=== PATIENT | male | born 1935 | race Caucasian/White ===

== ENCOUNTER 2016-11-02 08:51 | Day surgery (SDC) | payer MEDICARE, BC ==
[~2016-11-02 08:51] MED LIST: Lactated Ringers 1,000 ML IV SCH
[2016-11-02] MEDS ORDERED: Propofol 200 MG/20 ML SDV ONE (09:43)
[2016-11-02] MEDS ORDERED: fentaNYL 100 MCG/2 ML SDV ONE (09:43)
[2016-11-02 14:24] VITALS: BP 144/107
--- NOTE | 2016-11-02 18:55 | OR ---
DATE OF SURGERY: 11/02/2016. REFERRING PROVIDER: Benedict Montiel M.D. PRE-OPERATIVE DIAGNOSES: Positive fit stool card. The patient's last colonoscopy was about 10 years ago and was normal per patient's report. No previous history of colon polyps nor any family history of colon cancer or colon polyps. POST-OPERATIVE DIAGNOSES: 1. Mild internal hemorrhoids. 2. Minimal diverticulosis of the transverse colon. PROCEDURE: Colonoscopy. ANESTHESIA: Monitored anesthesia care. BOWEL PREP: Good. DESCRIPTION OF PROCEDURE: Jair is a 81-year-old male, who was brought to the endoscopy suite after discussing risks and benefits of the procedure. Informed consent was obtained for conscious sedation and colonoscopy with or without biopsy and/or polypectomy. We also discussed possibility of missed lesions. Pre-procedure exam was unremarkable. IV, oxygen, and monitors were placed. The patient was placed in the left lateral decubitus position. Sedation was administered and a digital rectal exam was performed which was unremarkable. Colonoscope was passed into the rectum and slowly advanced all the way to the cecum. Cecum was viewed and photographed. The colonoscope was slowly withdrawn and the mucosa was closed observed in a direct circumferential manner. The ascending colon was unremarkable. The transverse colon was remarkable for some minimal diverticulosis. The descending colon was unremarkable. The sigmoid colon was unremarkable. Retroflexion was performed and rectal mucosa was remarkable for some mild internal hemorrhoids, not acutely inflamed. Scope was removed. The patient tolerated the procedure well. The patient was monitored until that baseline status. Discharge instructions were reviewed and the patient was discharged in good condition. COMPLICATIONS: None. TOTAL TIME: 13 minutes. ESTIMATED BLOOD LOSS: None. RECOMMENDATIONS/FOLLOW-UP: The patient can be done with colon cancer screening. I would like to kindly thank Dr. Montiel for this referral. DMB: 11/02/2016 12:40:53 MODL: 11/02/2016 18:51:30 /[id number]
== END 2016-11-02 11:40 | disposition home or self-care (01) ==
LOC: VM.SDS 08:51
PROVIDERS: ATTEND Family Medicine
DX: K57.30 Diverticulosis of large intestine without perforation or abscess without bleeding (principal); K64.8 Other hemorrhoids; I10 Essential (primary) hypertension; E03.9 Hypothyroidism, unspecified; Z98.890 Other specified postprocedural states; Z79.899 Other long term (current) drug therapy
CPT/HCPCS: 00810; 36415; 45378; 85610; J2704; J3010; J7120

== ENCOUNTER 2019-10-20 03:35 | Observation (INO) | payer MEDICARE, BC ==
[2019-10-20] MEDS ORDERED: Sodium Chloride 0.9% 10 ML Syringe FLUSH PRN (03:44)
--- NOTE | 2019-10-20 04:05 | EDM.PDOC ---
ED HPI GENERAL MEDICAL PROBLEM - General Time Seen by Provider: 10/20/19 03:35 Source of Information: Reports: Patient History Limitations: Reports: No Limitations - History of Present Illness INITIAL COMMENTS - FREE TEXT/NARRATIVE: Pt. 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 Pt. states that he thinks the symptoms started at approx. 0300 this AM. He states that he was semi awake at the onset of the symptoms. He states that he went to bed around 11 PM. Pt. denies any recent head trauma. Pt. has a history of atrial fibrillation and states that he is on coumadin 5mg once daily. INR 2 weeks ago was 2.6. He denies any history of cerebrovascular disease has no other underlying neuro deficits. Pt. denies any vision loss or change. No facial numbness. He was noted by nursing to have some mild dysarthria as well. Pt. was diaphoretic on arrival to ER. He was hypertensive with a BP of 195/100. He states that he has a history of mild hypertension but states that it has always been well controlled with atenolol, which he also takes for rate control of his atrial fib. Onset: Today Onset Date: 10/20/19 Onset Time: 03:00 Location: Reports: Upper Extremity, Right Quality: Reports: Other (numbness R upper extremity; "feels like arm is asleep") Associated Symptoms: Reports: Diaphoresis. Denies: Nausea/Vomiting - Related Data Allergies Allergy/AdvReac Type Severity Reaction Status Date / Time No Known Allergies Allergy Verified 10/20/19 03:54 Home Meds: Home Meds Allopurinol [Zyloprim] 100 mg PO DAILY 10/31/16 [History] Levothyroxine [Synthroid] 100 mcg PO DAILY 10/31/16 [History] Warfarin [Coumadin] 5 mg PO DAILY 10/31/16 [History] atenoloL [Atenolol] 50 mg PO DAILY 10/31/16 [History] Warfarin Sodium [Jantoven] 7.5 mg PO ASDIRECTED 10/20/19 [History] Past Medical History HEENT History: Reports: None, Hard of Hearing Cardiovascular History: Reports: Afib, Other (See Below) Other Cardiovascular History: VALVULAR HEART DISEASE Respiratory History: Reports: None Gastrointestinal History: Reports: Other (See Below) Other Gastrointestinal History: + FECAL OCCULT Genitourinary History: Reports: None Musculoskeletal History: Reports: Arthritis, Gout Neurological History: Reports: None Psychiatric History: Reports: None Endocrine/Metabolic History: Reports: Hypothyroidism Hematologic History: Reports: None Immunologic History: Reports: None Oncologic (Cancer) History: Reports: None Dermatologic History: Reports: Other (See Below) Other Dermatologic History: SKIN LESIONS ON SCALP - Past Surgical History HEENT Surgical History: Reports: Cataract Surgery, Tonsillectomy Musculoskeletal Surgical History: Reports: Carpal Tunnel, Knee Replacement ED ROS GENERAL - Review of Systems Review Of Systems: See Below Constitutional: Reports: Weakness (R hand), Diaphoresis. Denies: Fever, Chills , Malaise HEENT: Reports: No Symptoms Respiratory: Reports: No Symptoms Cardiovascular: Reports: No Symptoms Endocrine: Reports: No Symptoms GI/Abdominal: Reports: No Symptoms : Reports: No Symptoms Musculoskeletal: Reports: Arm Pain, Hand Pain Skin: Reports: Diaphoresis Neurological: Reports: Paresthesia, Tingling, Trouble Speaking Psychiatric: Reports: No Symptoms Hematologic/Lymphatic: Reports: No Symptoms Immunologic: Reports: No Symptoms ED EXAM, GENERAL - Physical Exam Exam: See Below Exam Limited By: No Limitations General Appearance: Alert, WD/WN, No Apparent Distress Eye Exam: Bilateral Eye: EOMI, Normal Fundi, Normal Inspection, PERRL Throat/Mouth: Normal Inspection, Normal Lips, Normal Teeth, Normal Gums, Normal Oropharynx, Normal Voice, No Airway Compromise Head: Atraumatic, Normocephalic Neck: Normal Inspection, Supple, Non-Tender, Full Range of Motion Respiratory/Chest: No Respiratory Distress, Lungs Clear, Normal Breath Sounds, No Accessory Muscle Use, Chest Non-Tender Cardiovascular: Normal Peripheral Pulses, No Edema, No Gallop, No JVD, No Murmur , No Rub, Irregularly Irregular Peripheral Pulses: 4+: Radial (L), Radial (R), Dorsalis Pedis (L), Dorsalis Pedis (R) GI/Abdominal: Normal Bowel Sounds, Soft, Non-Tender, No Organomegaly, No Distention, No Mass (Male) Exam: Deferred Rectal (Males) Exam: Deferred Back Exam: Normal Inspection, Full Range of Motion Extremities: Normal Inspection, No Pedal Edema, Other (decreased strength in R upper extremity) Neurological: Alert Psychiatric: Normal Affect, Normal Mood Skin Exam: Warm, Dry, Intact, Normal Color, No Rash Lymphatic: No Adenopathy EKG INTERPRETATION Rhythm: A-Fib (t) Course - Orders/Labs/Meds Orders: Active Orders 24 hr Category Date Time Status EKG Documentation Completion [RC] STAT Care 10/20/19 03:45 Ordered Head wo Cont [CT] Stat Exams 10/20/19 03:45 Ordered COMPREHENSIVE METABOLIC PN,CMP [CHEM] Stat Lab 10/20/19 03:44 Ordered CRP [C-REACTIVE PROTEIN] [CHEM] Stat Lab 10/20/19 03:45 Ordered MAGNESIUM [CHEM] Stat Lab 10/20/19 03:45 Ordered TSH ULTRASENSITIVE [CHEM] Stat Lab 10/20/19 03:45 Ordered Sodium Chloride 0.9% [Saline Flush] Med 10/20/19 03:44 Ordered 10 ml FLUSH ASDIRECTED PRN Peripheral IV Insertion Adult [OM.PC] Routine Oth 10/20/19 03:45 Ordered Medication Orders Sodium Chloride (Saline Flush) 10 ml FLUSH ASDIRECTED PRN PRN Reason: Keep Vein Open Labs: Laboratory Tests 10/20/19 10/20/19 10/20/19 Range/Units 04:08 04:08 04:11 WBC 9.5 (4.0-10.0) x10^3/uL RBC 4.65 (4.5-6.0) x10^6/uL Hgb 16.3 (14.0-18.0) g/dL Hct 49.0 (40.0-52.0) % MCV 105.4 H (78.0-93.0) fL MCH 35.1 H (26.0-32.0) pg MCHC 33.3 (32.0-36.0) g/dL RDW Coeff of Denis 14.1 (10.0-15.0) % Plt Count 139 (130-400) x10^3/uL Neut % (Auto) 37.8 L (50.0-80.0) % Lymph % (Auto) 49.9 (25.0-50.0) % [place] % (Auto) 9.5 (2.0-11.0) % Eos % (Auto) 2.6 (0.0-4.0) % Baso % (Auto) 0.2 (0.2-1.2) % PT 21.8 H (10.0-12.8) SEC INR 1.9 L (2.0-3.5) POC Troponin I 0.01 (0.00-0.08) ng/mL Meds: Medications Generic Name Dose Route Start Last Admin Trade Name Dougq PRN Reason Stop Dose Admin Sodium Chloride 10 ml 10/20/19 03:44 Saline Flush FLUSH ASDIRECTED PRN Keep Vein Open - Radiology Interpretation Free Text/Narrative:: CT brain without contrast was obtained, showing a possible age indeterminate lacunar infarct. - Re-Assessments/Exams Free Text/Narrative Re-Assessment/Exam: Pt. symptoms began to resolve during his stay in ER. The discomfort/paresthesia decreased in severity from 8 down to 1. Desk Director strength improved as well. Stroke code was called on arrival to ER. Contacted [place] stroke neurologist (Melani) and discussed the case at length. He states that the patient does not need to be transferred and advised outpatient MRI/MRA of his brain. He advised bridging with lovenox was below 2 ( it was 1.9) and observation. 10/20/19 04:40 Departure - Departure Time of Disposition: 03:38 Disposition: Refer to Observation Clinical Impression: TIA (transient ischemic attack), Subtherapeutic anticoagulation, Hypertensive crisis - Discharge Information Sepsis Event Note - Focused Exam Date Exam was Performed: 10/20/19 Time Exam was Performed: 04:35 - Problem List Review Problem List Initiated/Reviewed/Updated: Yes - My Orders Last 24 Hours: My Active Orders 10/20/19 03:44 COMPREHENSIVE METABOLIC PN,CMP [CHEM] Stat Sodium Chloride 0.9% [Saline Flush] 10 ml FLUSH ASDIRECTED PRN 10/20/19 03:45 EKG Documentation Completion [RC] STAT Head wo Cont [CT] Stat CRP [C-REACTIVE PROTEIN] [CHEM] Stat MAGNESIUM [CHEM] Stat TSH ULTRASENSITIVE [CHEM] Stat Peripheral IV Insertion Adult [OM.PC] Routine - Assessment/Plan Last 24 Hours: My Active Orders 10/20/19 03:44 COMPREHENSIVE METABOLIC PN,CMP [CHEM] Stat Sodium Chloride 0.9% [Saline Flush] 10 ml FLUSH ASDIRECTED PRN 10/20/19 03:45 EKG Documentation Completion [RC] STAT Head wo Cont [CT] Stat CRP [C-REACTIVE PROTEIN] [CHEM] Stat MAGNESIUM [CHEM] Stat TSH ULTRASENSITIVE [CHEM] Stat Peripheral IV Insertion Adult [OM.PC] Routine Plan: Pt. will be admitted observation. Neuro checks every hour. Vitals every 4. He was given lovenox 80mg SQ as his INR was subtheraputic. Will check INR and trend troponin in AM. He is a code 2, DNR/DNI. Pt. did pass his swallow study. Anticipate discharge tomorrow is symptoms are still resolving.
[2019-10-20 04:44] LABS: ANION GAP 20.1 mmol/L (10-20)
[2019-10-20] MEDS: Enoxaparin 80 MG/0.8 ML Syringe SUBCUT ONE ×2 (04:48→15:55)
--- NOTE | 2019-10-20 08:39 | CT ---
[id number] CT/CT Head WO IV EXAM: CT Head WO IV CLINICAL DATA: RIGHT SIDED ARM WEAKNESS, STROKE CODE COMPARISON STUDY: None FINDINGS: No intracranial hemorrhage, extra-axial fluid collection, mass, or acute ischemia. Generalized parenchymal atrophy with scattered areas of nonspecific white matter disease, commonly seen as sequela of chronic microvascular ischemia. Soft tissues are unremarkable. Paranasal sinuses and mastoid air cells are clear. IMPRESSION: No acute intracranial findings. Samir Oneill DO 10/20/19 0838 Thank you for allowing us to participate in the care of your patient.
[2019-10-20] MEDS: Allopurinol 100 MG Tab PO SCH (09:10)
[2019-10-20] MEDS: Levothyroxine 100 MCG Tab PO SCH (09:10)
[2019-10-20] MEDS: Atenolol 50 MG Tab PO SCH (09:10)
[2019-10-20] MEDS: Lisinopril 5 MG Tab PO ONE (09:56)
[2019-10-20] MEDS: Warfarin 2.5 MG Tab PO ONE (09:56)
[2019-10-20] MEDS: Acetaminophen 500 MG Tab PO PRN (12:00)
[2019-10-20 15:17] VITALS: BP 139/78; PULSE 65
--- NOTE | 2019-10-20 16:30 | PCM.DCSUM1 ---
Discharge Summary - Hospital Course Free Text/Narrative:: Pt. did well overnight. Denies any continued weakness/discomfort or paresthesia in the R upper extremity. Speech has been fluent. Pt. has been intermittently hypertensive throughout admission. He was started on Lisinopril 5mg once daily in addition to his atenolol. BP at time of discharge was excellent at 139/78. Per discussion last night with Dr. Polo, patient was observed overnight. He was bridged with lovenox as his INR was subtheraputic at 1.9. He was given his first dose on admission (lovenox 80mg) and was also given a dose prior to discharge. INR this AM was actually lower at 1.8. Pt. is adamant that he be discharged today as he is symptom free. Diagnosis: Stroke: Yes Modified Keyes Scale: No Symptoms at All Modified Kalie Scale Score: 0 - Discharge Data Discharge Date: 10/20/19 Discharge Disposition: Home, Self-Care 01 Condition: Good - Referral to Home Health Primary Care Physician: Benedict Montiel MD - Discharge Diagnosis/Problem(s) (1) Hypertensive crisis SNOMED Code(s): 037407142 ICD Code: I16.9 - HYPERTENSIVE CRISIS, UNSPECIFIED Status: Acute Current Visit: Yes (2) Subtherapeutic anticoagulation SNOMED Code(s): 033183512 ICD Code: Z51.81 - ENCOUNTER FOR THERAPEUTIC DRUG LEVEL MONITORING; Z79.01 - CARE HOME (CURRENT) USE OF ANTICOAGULANTS Status: Acute Current Visit: Yes (3) TIA (transient ischemic attack) SNOMED Code(s): 710144496 ICD Code: G45.9 - TRANSIENT CEREBRAL ISCHEMIC ATTACK, UNSPECIFIED Status: Acute Current Visit: Yes - Patient Instructions Diet: Heart Healthy Diet - Discharge Plan Home Medications: Home Meds Allopurinol [Zyloprim] 100 mg PO DAILY 10/31/16 [History] Levothyroxine [Synthroid] 100 mcg PO DAILY 10/31/16 [History] Warfarin [Coumadin] 5 mg PO SUTUTHSA@199910/31/16 [History] atenoloL [Atenolol] 50 mg PO DAILY 10/31/16 [History] Warfarin Sodium [Jantoven] 7.5 mg PO MOWEFR@199910/20/19 [History] Forms: ED Department Discharge Referrals: PCP,Unobtain [Ordering Only Provider] - - Discharge Summary/Plan Comment DC Time >30 min.: Yes Discharge Summary/Plan Comment: Pt. will be discharged today. Discussed findings with pharmacy regarding continuing lovenox at home. At this point, since his INR is only mildly subtheraputic and he has had 2 doses of lovenox today, we will hold off on starting lovenox until his INR is checked tomorrow. Pt. was started on Lisinopril 5mg once daily in addition to his atenolol. He was advised to return to ER if his symptoms redevelop, if he has issues with speech/ambulation, or other worrisome signs/symptoms. All questions were answered. - General Info Date of Service: 10/20/19 Functional Status: Reports: Pain Controlled - Review of Systems General: Reports: No Symptoms HEENT: Reports: No Symptoms Pulmonary: Reports: No Symptoms Cardiovascular: Reports: No Symptoms Gastrointestinal: Reports: No Symptoms Genitourinary: Reports: No Symptoms Musculoskeletal: Reports: No Symptoms Skin: Reports: No Symptoms Neurological: Reports: No Symptoms Psychiatric: Reports: No Symptoms - Patient Data Vitals - Most Recent: Last Vital Signs Temp 36.6 C 10/20/19 14:00 Pulse 65 10/20/19 14:00 Resp 18 10/20/19 14:00 BP 139/78 10/20/19 14:00 Pulse Ox 94 L 10/20/19 14:00 Weight - Most Recent: 90.718 kg I&O - Last 24 hours: Intake & Output 10/20/19 10/20/19 10/20/19 06:59 14:59 22:59 Intake Total 120 Balance 120 Lab Results - Last 24 hrs: Laboratory Results - last 24 hr 10/20/19 10/20/19 10/20/19 Range/Units 03:44 04:08 04:08 WBC (4.0-10.0) x10^3/uL RBC (4.5-6.0) x10^6/uL Hgb (14.0-18.0) g/dL Hct (40.0-52.0) % MCV (78.0-93.0) fL MCH (26.0-32.0) pg MCHC (32.0-36.0) g/dL RDW Coeff of Denis (10.0-15.0) % Plt Count (130-400) x10^3/uL Neut % (Auto) (50.0-80.0) % Lymph % (Auto) (25.0-50.0) % [place] % (Auto) (2.0-11.0) % Eos % (Auto) (0.0-4.0) % Baso % (Auto) (0.2-1.2) % PT 21.8 H (10.0-12.8) SEC INR 1.9 L (2.0-3.5) Sodium 146 H (136-145) mmol/L Potassium 4.1 (3.5-5.1) mmol/L Chloride 104 (98-107) mmol/L Carbon Dioxide 26 (21-32) mmol/L Anion Gap 20.1 H (10-20) mmol/L BUN 27 H (7-18) mg/dL Creatinine 1.3 (0.70-1.30) mg/dL Est Cr Clr Drug Dosing 43.81 mL/min Estimated GFR (MDRD) 53 Glucose 140 H (74-106) mg/dL POC Glucose 116 H (74-106) mg/dL Calcium 8.9 (8.5-10.1) mg/dL Corrected Calcium 9.22 (8.5-10.1) mg/dL Magnesium 2.1 (1.8-2.4) mg/dL Total Bilirubin 0.5 (0.2-1.0) mg/dL AST 24 (15-37) U/L ALT 30 (16-63) U/L Alkaline Phosphatase 64 (46-116) U/L POC Troponin I (0.00-0.08) ng/mL C-Reactive Protein 1.3 H (<=0.9) mg/dL Total Protein 7.3 (6.4-8.2) g/dL Albumin 3.6 (3.4-5.0) g/dL Globulin 3.7 Albumin/Globulin Ratio 0.97 TSH, Ultra Sensitive 10.123 H (0.358-3.74) uIU/mL 10/20/19 10/20/19 10/20/19 Range/Units 04:08 04:11 09:45 WBC 9.5 (4.0-10.0) x10^3/uL RBC 4.65 (4.5-6.0) x10^6/uL Hgb 16.3 (14.0-18.0) g/dL Hct 49.0 (40.0-52.0) % MCV 105.4 H (78.0-93.0) fL MCH 35.1 H (26.0-32.0) pg MCHC 33.3 (32.0-36.0) g/dL RDW Coeff of Denis 14.1 (10.0-15.0) % Plt Count 139 (130-400) x10^3/uL Neut % (Auto) 37.8 L (50.0-80.0) % Lymph % (Auto) 49.9 (25.0-50.0) % [place] % (Auto) 9.5 (2.0-11.0) % Eos % (Auto) 2.6 (0.0-4.0) % Baso % (Auto) 0.2 (0.2-1.2) % PT 20.7 H (10.0-12.8) SEC INR 1.8 L (2.0-3.5) Sodium (136-145) mmol/L Potassium (3.5-5.1) mmol/L Chloride (98-107) mmol/L Carbon Dioxide (21-32) mmol/L Anion Gap (10-20) mmol/L BUN (7-18) mg/dL Creatinine (0.70-1.30) mg/dL Est Cr Clr Drug Dosing mL/min Estimated GFR (MDRD) Glucose (74-106) mg/dL POC Glucose (74-106) mg/dL Calcium (8.5-10.1) mg/dL Corrected Calcium (8.5-10.1) mg/dL Magnesium (1.8-2.4) mg/dL Total Bilirubin (0.2-1.0) mg/dL AST (15-37) U/L ALT (16-63) U/L Alkaline Phosphatase (46-116) U/L POC Troponin I 0.01 (0.00-0.08) ng/mL C-Reactive Protein (<=0.9) mg/dL Total Protein (6.4-8.2) g/dL Albumin (3.4-5.0) g/dL Globulin Albumin/Globulin Ratio TSH, Ultra Sensitive (0.358-3.74) uIU/mL Med Orders - Current: Current Medications Acetaminophen (Tylenol Extra Strength) 1,000 mg PO Q6H PRN PRN Reason: Pain Last Admin: 10/20/19 12:00 Dose: 1,000 mg Allopurinol (Zyloprim) 100 mg PO DAILY [facility] Last Admin: 10/20/19 09:10 Dose: 100 mg Atenolol (Tenormin) 50 mg PO DAILY [facility] Last Admin: 10/20/19 09:10 Dose: 50 mg Levothyroxine Sodium (Synthroid) 100 mcg PO DAILY [facility] Last Admin: 10/20/19 09:10 Dose: 100 mcg Sodium Chloride (Saline Flush) 10 ml FLUSH ASDIRECTED PRN PRN Reason: Keep Vein Open Warfarin Sodium (Coumadin) 5 mg PO MoWeFr@1999 [facility] Warfarin Sodium (Coumadin) 7.5 mg PO SuTuThSa@1999 [facility] Discontinued Medications Enoxaparin Sodium (Lovenox) 80 mg SUBCUT ONETIME ONE Stop: 10/20/19 04:44 Last Admin: 10/20/19 04:48 Dose: 80 mg Enoxaparin Sodium (Lovenox) 80 mg SUBCUT ONETIME ONE Stop: 10/20/19 16:01 Last Admin: 10/20/19 15:55 Dose: 80 mg Lisinopril (Prinivil) 5 mg PO ONETIME ONE Stop: 10/20/19 09:43 Last Admin: 10/20/19 09:56 Dose: 5 mg Warfarin Sodium (Coumadin) 7.5 mg PO ONETIME ONE Stop: 10/20/19 09:46 Last Admin: 10/20/19 09:56 Dose: 7.5 mg - Exam General: Reports: Alert, Oriented HEENT: Reports: Pupils Equal, Pupils Reactive, EOMI, Mucous Membr. Moist/Doyle Neck: Reports: Supple Lungs: Reports: Clear to Auscultation, Normal Respiratory Effort Cardiovascular: Reports: Regular Rate, Regular Rhythm GI/Abdominal Exam: Soft, Non-Tender, No Distention, No Mass (Male) Exam: Deferred Rectal (Males) Exam: Deferred Back Exam: Reports: Normal Inspection, Full Range of Motion Extremities: Normal Inspection, Normal Range of Motion, Non-Tender, No Pedal Edema, Normal Capillary Refill Skin: Reports: Warm, Dry, Intact Neurological: Reports: No New Focal Deficit Psy/Mental Status: Reports: Alert, Normal Affect, Normal Mood
[2019-10-20] MEDS ORDERED: Warfarin 5 MG Tab PO SCH (20:00)
[2019-10-21] MEDS ORDERED: Warfarin 2.5 MG Tab PO SCH (20:00)
== END 2019-10-20 16:00 | disposition home or self-care (01) ==
LOC: VM.ED 03:35 → VM.MS 04:50
PROVIDERS: ADMIT Physician Assistant; ATTEND Family Medicine
DX: G45.9 Transient cerebral ischemic attack, unspecified (principal); I16.9 Hypertensive crisis, unspecified; E03.9 Hypothyroidism, unspecified; I48.91 Unspecified atrial fibrillation; Z51.81 Encounter for therapeutic drug level monitoring; Z79.890 Hormone replacement therapy; Z79.01 Long term (current) use of anticoagulants; Z79.899 Other long term (current) drug therapy
CPT/HCPCS: 36415; 70450; 80053; 82962; 83735; 84443; 84484; 85025; 85610; 86140; 93005; 96372; 99236; 99285-25; A9270-GY; J1650

== ENCOUNTER 2020-08-04 20:19 | Emergency (ER) | payer MEDICARE, BC ==
--- NOTE | 2020-08-04 20:38 | EDM.PDOC ---
ED HPI GENERAL MEDICAL PROBLEM - General Stated Complaint: NEEDS CATHERER OUT Time Seen by Provider: 08/04/20 20:20 Source of Information: Reports: Patient History Limitations: Reports: No Limitations - History of Present Illness INITIAL COMMENTS - FREE TEXT/NARRATIVE: This patient comes emergency department today for urinary catheter removal. This patient was seen by myself early Sunday morning of this week for severe constipation and urinary retention. Cruz catheter was placed and left in and he was supposed to return yesterday but he was unable to to get his Cruz catheter removed in the clinic. He has actually had multiple bowel movements and is actually having a little bit of diarrhea. No nausea no vomiting. No rectal bleeding. No abdominal pain. No fever no chills. He would like his Cruz catheter removed. He did attempt to remove it at home by just pulling on the end of the catheter as he was unaware that there was a balloon in there. Therefore he came to the ER to get it removed. No Covid exposure no Covid symptoms. No pain in his abdomen. He did have a small amount of blood initially when he tried to remove the catheter but that has resolved. He was on anticoagulation therapy previously but he is holding it at this time due to his recent diagnosis of esophageal cancer and multiple testing. - Related Data Allergies Allergy/AdvReac Type Severity Reaction Status Date / Time No Known Allergies Allergy Verified 08/02/20 06:44 Home Meds: Home Meds Allopurinol [Zyloprim] 100 mg PO DAILY 10/31/16 [History] Levothyroxine [Synthroid] 100 mcg PO DAILY 10/31/16 [History] Warfarin [Coumadin] 5 mg PO SUTUTHSA@199910/31/16 [History] atenoloL [Atenolol] 50 mg PO DAILY 10/31/16 [History] Warfarin Sodium [Jantoven] 7.5 mg PO MOWEFR@199910/20/19 [History] Omeprazole 20 mg PO DAILY 07/15/20 [History] Past Medical History HEENT History: Reports: None, Hard of Hearing Cardiovascular History: Reports: Afib, Other (See Below) Other Cardiovascular History: VALVULAR HEART DISEASE Respiratory History: Reports: None Gastrointestinal History: Reports: Other (See Below) Other Gastrointestinal History: + FECAL OCCULT Genitourinary History: Reports: None Musculoskeletal History: Reports: Arthritis, Gout Neurological History: Reports: None Psychiatric History: Reports: None Endocrine/Metabolic History: Reports: Hypothyroidism Hematologic History: Reports: None Immunologic History: Reports: None Oncologic (Cancer) History: Reports: None Dermatologic History: Reports: Other (See Below) Other Dermatologic History: SKIN LESIONS ON SCALP - Past Surgical History Head Surgeries/Procedures: Reports: None HEENT Surgical History: Reports: Cataract Surgery, Tonsillectomy Cardiovascular Surgical History: Reports: None GI Surgical History: Reports: Colonoscopy Endocrine Surgical History: Reports: None Musculoskeletal Surgical History: Reports: Carpal Tunnel, Knee Replacement Oncologic Surgical History: Reports: None Social & Family History - Caffeine Use Caffeine Use: Reports: Coffee, Soda, Tea ED ROS GENERAL - Review of Systems Review Of Systems: Comprehensive ROS is negative, except as noted in HPI. ED EXAM, RENAL/ - Physical Exam Exam: See Below Exam Limited By: No Limitations General Appearance: Alert, WD/WN, No Apparent Distress Respiratory/Chest: No Respiratory Distress Cardiovascular: Normal Peripheral Pulses GI/Abdominal: Normal Bowel Sounds, Soft, Non-Tender (Male) Exam: Deferred, Other (Urinary catheter in place. Small amount of urine in the bag with a very mild redness color. No kenroy blood.) Rectal (Males) Exam: Deferred Back Exam: Normal Inspection, Full Range of Motion Extremities: Normal Inspection, Normal Range of Motion, No Pedal Edema, Normal Capillary Refill Neurological: Alert, Oriented, No Motor/Sensory Deficits Psychiatric: Normal Affect, Normal Mood Skin Exam: Warm, Dry, Intact, Normal Color, No Rash Course - Re-Assessments/Exams Free Text/Narrative Re-Assessment/Exam: 08/04/20 20:39 Cruz catheter was removed without difficulty. There is no bleeding. Tolerated the procedure well. I will have him hold his MiraLAX as he has diarrhea at this time. He can restart it if he has any concerns for constipation again. Recheck if any new problems. He is understanding this questions are answered. Departure - Departure Time of Disposition: 20:33 Disposition: Home, Self-Care 01 Clinical Impression: Encounter for Cruz catheter removal - Discharge Information Referrals: Delmi Houston DO [Primary Care Provider] - Additional Instructions: You can discontinue the miralax. Use if you see any concerns of hard stool or constipation returning as previously. Return to the ED if new or worsening symptoms. Follow up in the clinic if any concerns.
== END 2020-08-04 20:45 | disposition home or self-care (01) ==
LOC: VM.ED 20:19
CPT/HCPCS: 99283

== ENCOUNTER 2020-10-07 12:36 | Inpatient (IN) | payer MEDICARE, BC ==
[2020-10-07] MEDS ORDERED: Lactated Ringers 1,000 ML IV ONE (13:47)
[2020-10-07 14:30] LABS: PTT,PARTIAL THROMBOPLSTIN TIME 33.6 SEC (25.6-32.8)
[2020-10-07 14:34] LABS: CHLORIDE,CL 102 mmol/L (98-107); SODIUM,NA 138 mmol/L (136-145)
[2020-10-07 14:42] LABS: ANION GAP 10.4 mmol/L (5-15)
--- NOTE | 2020-10-07 15:13 | EDM.PDOC ---
ED HPI GENERAL MEDICAL PROBLEM - General Chief Complaint: General Stated Complaint: Weakness Time Seen by Provider: 10/07/20 12:40 Source of Information: Reports: Patient History Limitations: Reports: No Limitations - History of Present Illness INITIAL COMMENTS - FREE TEXT/NARRATIVE: Patient comes emergency department today from home with his family with concerns of generalized weakness. This patient is currently under management and not currently receiving any chemotherapy or radiation for esophageal cancer. He has been receiving regular IV infusions every other day in the clinic or in the emergency department due to his inability to eat and drink with his painful esophagus following his treatments for his esophageal cancer. He is getting very difficult for him at home to drink fluids or eat any food. It has been a couple of days since he is eaten any solid food. He does attempt to drink water and protein shakes at home but does not get much of them down. He had does complain of quite a bit of nausea as well. He takes oxycodone intermittently for his pain. No fever no chills. No cough no congestion. No chest pain no shortness of breath or difficulty breathing. No shortness of breath. No abdominal pain does complain of nausea without vomiting. No hematuria dysuria or urinary frequency. No palpitations or syncope. No Covid exposure no Covid symptoms. - Related Data Allergies Allergy/AdvReac Type Severity Reaction Status Date / Time No Known Allergies Allergy Verified 10/07/20 15:28 Home Meds: Home Meds Allopurinol [Zyloprim] 100 mg PO DAILY 10/31/16 [History] Levothyroxine [Synthroid] 100 mcg PO DAILY 10/31/16 [History] Warfarin [Coumadin] 5 mg PO DAILY 10/31/16 [History] atenoloL [Atenolol] 50 mg PO DAILY 10/31/16 [History] Omeprazole 20 mg PO DAILY 07/15/20 [History] Lidocaine 2% [Xylocaine 2% Viscous] 30 ml PO QID PRN 10/07/20 [History] OLANZapine [ZyPREXA] 10 mg PO BEDTIME 10/07/20 [History] Phytonadione [Vitamin K] 200 mcg PO DAILY 10/07/20 [History] Prochlorperazine [Compazine] 10 mg PO QID PRN 10/07/20 [History] atorvaSTATin [Lipitor] 20 mg PO BEDTIME 10/07/20 [History] dexAMETHasone [Dexamethasone] 4 mg PO DAILY 10/07/20 [History] lidocaine HCL [Lidocaine HCl Viscous] 30 ml PO QID PRN 10/07/20 [History] oxyCODONE 5 mg PO Q4H PRN 10/07/20 [History] Past Medical History HEENT History: Reports: None, Hard of Hearing Cardiovascular History: Reports: Afib, Other (See Below) Other Cardiovascular History: VALVULAR HEART DISEASE Respiratory History: Reports: None Gastrointestinal History: Reports: Other (See Below) Other Gastrointestinal History: + FECAL OCCULT Genitourinary History: Reports: None Musculoskeletal History: Reports: Arthritis, Gout Neurological History: Reports: None Psychiatric History: Reports: None Endocrine/Metabolic History: Reports: Hypothyroidism Hematologic History: Reports: None Immunologic History: Reports: None Oncologic (Cancer) History: Reports: None Dermatologic History: Reports: Other (See Below) Other Dermatologic History: SKIN LESIONS ON SCALP - Past Surgical History Head Surgeries/Procedures: Reports: None HEENT Surgical History: Reports: Cataract Surgery, Tonsillectomy Cardiovascular Surgical History: Reports: None GI Surgical History: Reports: Colonoscopy Endocrine Surgical History: Reports: None Musculoskeletal Surgical History: Reports: Carpal Tunnel, Knee Replacement Oncologic Surgical History: Reports: None Social & Family History - Caffeine Use Caffeine Use: Reports: Coffee, Soda, Tea ED ROS GENERAL - Review of Systems Review Of Systems: Comprehensive ROS is negative, except as noted in HPI. ED EXAM, GENERAL - Physical Exam Exam: See Below Free Text/Narrative:: Nontoxic appearing frail gentleman who is alert appropriate and interactive Exam Limited By: No Limitations General Appearance: Alert, WD/WN, Thin Eye Exam: Bilateral Eye: EOMI, PERRL Ears: Normal External Exam Nose: Normal Inspection Throat/Mouth: No: Normal Inspection (Oral mucosa is quite dry without any lesions or ulcers. Lips are dry and cracked as well.) Head: Atraumatic, Normocephalic Neck: Normal Inspection, Supple, Non-Tender, Full Range of Motion Respiratory/Chest: No Respiratory Distress, Lungs Clear, Normal Breath Sounds, No Accessory Muscle Use, Chest Non-Tender Cardiovascular: Normal Peripheral Pulses, Regular Rate, Rhythm Peripheral Pulses: 1+: Radial (L), Radial (R), Posterior Tibial (L), Posterior Tibial (R), Dorsalis Pedis (L), Dorsalis Pedis (R) GI/Abdominal: Normal Bowel Sounds, Soft, Non-Tender (Male) Exam: Deferred Rectal (Males) Exam: Deferred Back Exam: Normal Inspection, Full Range of Motion Extremities: Normal Inspection, Pedal Edema (1+ pedal edema as well as some peripheral edema to his hands and forearms.) Neurological: Alert, Oriented, Normal Cognition, No Motor/Sensory Deficits Course - Vital Signs Last Recorded V/S: Last Vital Signs Temp 97.9 F 10/07/20 18:00 Pulse 96 10/07/20 18:00 Resp 18 10/07/20 12:40 BP 114/71 10/07/20 18:00 Pulse Ox 93 L 10/07/20 18:00 - Orders/Labs/Meds Orders: Active Orders 24 hr Category Date Time Status EKG Documentation Completion [RC] STAT Care 10/07/20 13:25 Active CULTURE BLOOD [BC] Stat Lab 10/07/20 13:55 Received CULTURE BLOOD [BC] Stat Lab 10/07/20 14:10 Received UA RFX BERTHA AND CULT IF INDIC [URIN] Stat Lab 10/07/20 13:25 Ordered Blood Culture x2 Reflex Set [OM.PC] Stat Oth 10/07/20 13:30 Ordered Medication Orders Acetaminophen (Acetaminophen 325 Mg Tab) 650 mg PO Q4H PRN PRN Reason: Pain (Mild 1-3)/fever Al Hydroxide/Mg Hydroxide (Gi Cocktail Oral Solution 30 Ml) 30 ml PO TIDAC JAIDEN Last Admin: 10/07/20 17:05 Dose: Not Given Documented by: EDENILSON Allopurinol (Allopurinol 100 Mg Tab) 100 mg PO DAILY [facility] Atenolol (Atenolol 50 Mg Tab) 50 mg PO DAILY [facility] Atorvastatin Calcium (Atorvastatin 10 Mg Tab) 20 mg PO BEDTIME [facility] Bisacodyl (Bisacodyl 5 Mg Tab) 5 mg PO DAILY PRN PRN Reason: Constipation Last Admin: 10/07/20 17:39 Dose: 5 mg Documented by: EDENILSON Dexamethasone (Dexamethasone 4 Mg Tab) 4 mg PO DAILY [facility] Stop: 10/15/20 08:01 Hydromorphone HCl (Hydromorphone 2 Mg Tab) 2 mg PO Q3H PRN PRN Reason: Pain Promethazine HCl 6.25 mg/ (Sodium Chloride) 100.25 mls @ 400 mls/hr IV Q6H PRN PRN Reason: Nausea/Vomiting Potassium Chloride/Dextrose/Sod Cl (D5 Ns With 20 Meq Kcl) 1,000 mls @ 75 mls/hr IV ASDIRECTED JAIDEN Last Admin: 10/07/20 17:35 Dose: 75 mls/hr Documented by: EDENILSON Levothyroxine Sodium (Levothyroxine 100 Mcg Tab) 100 mcg PO DAILY [facility] Lidocaine HCl (Lidocaine 2% Viscous Solution 100 Ml Bottle) 30 ml PO QID PRN PRN Reason: Pain Magnesium Oxide (Magnesium Oxide 400 Mg Tab) 400 mg PO BID [facility] Last Admin: 10/07/20 17:57 Dose: 400 mg Documented by: EDENILSON Olanzapine (Olanzapine 5 Mg Tab) 10 mg PO BEDTIME JAIDEN Omeprazole (Omeprazole 20 Mg Cap.Cr) 20 mg PO DAILY [facility] Ondansetron HCl (Ondansetron 4 Mg/2 Ml Sdv) 4 mg IVPUSH Q8H PRN PRN Reason: Nausea Last Admin: 10/07/20 17:35 Dose: 4 mg Documented by: EDENILSON Ondansetron HCl (Ondansetron 4 Mg Tab.Dis) 4 mg PO Q4H PRN PRN Reason: Nausea/Vomiting Pharmacy Consult (Pharmacy Consult Order) 1 each .XX ASDIRECTED [facility] Senna/Docusate Sodium (Docusate Sodium/Sennosides 50-8.6 Mg Tab) 1 tab PO BID [facility] Last Admin: 10/07/20 17:40 Dose: 1 tab Documented by: EDENILSON Sodium Chloride (Sodium Chloride 0.9% 10 Ml Syringe) 10 ml FLUSH ASDIRECTED PRN PRN Reason: FLUSH Last Admin: 10/07/20 17:54 Dose: 10 ml Documented by: EDENILSON Labs: Laboratory Tests 10/07/20 10/07/20 10/07/20 Range/Units 13:55 13:55 13:55 WBC 6.7 (4.0-10.0) x10^3/uL RBC 3.84 L (4.5-6.0) x10^6/uL Hgb 13.4 L D (14.0-18.0) g/dL Hct 38.5 L (40.0-52.0) % MCV 100.3 H (78.0-93.0) fL MCH 34.9 H (26.0-32.0) pg MCHC 34.8 (32.0-36.0) g/dL RDW Coeff of Denis 17.0 H (10.0-15.0) % Plt Count 72 L (130-400) x10^3/uL Neut % (Auto) 81.3 H (50.0-80.0) % Lymph % (Auto) 11.9 L (25.0-50.0) % [place] % (Auto) 6.6 (2.0-11.0) % Eos % (Auto) 0.1 (0.0-4.0) % Baso % (Auto) 0.1 L (0.2-1.2) % PT (9.9-12.5) SEC INR (2.0-3.5) APTT (25.6-32.8) SEC Sodium 138 (136-145) mmol/L Potassium 3.4 L (3.5-5.1) mmol/L Chloride 102 (98-107) mmol/L Carbon Dioxide 29 (21-32) mmol/L Anion Gap 10.4 (5-15) mmol/L BUN 21 H (7-18) mg/dL Creatinine 0.9 (0.70-1.30) mg/dL Est Cr Clr Drug Dosing TNP Estimated GFR (MDRD) > 60 Glucose 105 (74-106) mg/dL Lactic Acid 2.3 H* (0.4-2.0) mmol/L Calcium 7.9 L (8.5-10.1) mg/dL Corrected Calcium 9.58 (8.5-10.1) mg/dL Magnesium 1.6 L (1.8-2.4) mg/dL Total Bilirubin 0.9 (0.2-1.0) mg/dL AST 32 (15-37) U/L ALT 22 (16-63) U/L Alkaline Phosphatase 67 (46-116) U/L Troponin I High Sens 22 (<=76) ng/L Total Protein 5.4 L (6.4-8.2) g/dL Albumin 1.9 L (3.4-5.0) g/dL Globulin 3.5 Albumin/Globulin Ratio 0.54 SARS CoV-2 RNA Rapid MARTITA (NEGATIVE) 10/07/20 10/07/20 Range/Units 13:55 14:07 WBC (4.0-10.0) x10^3/uL RBC (4.5-6.0) x10^6/uL Hgb (14.0-18.0) g/dL Hct (40.0-52.0) % MCV (78.0-93.0) fL MCH (26.0-32.0) pg MCHC (32.0-36.0) g/dL RDW Coeff of Denis (10.0-15.0) % Plt Count (130-400) x10^3/uL Neut % (Auto) (50.0-80.0) % Lymph % (Auto) (25.0-50.0) % [place] % (Auto) (2.0-11.0) % Eos % (Auto) (0.0-4.0) % Baso % (Auto) (0.2-1.2) % PT 14.9 H (9.9-12.5) SEC INR 1.3 L (2.0-3.5) APTT 33.6 H (25.6-32.8) SEC Sodium (136-145) mmol/L Potassium (3.5-5.1) mmol/L Chloride (98-107) mmol/L Carbon Dioxide (21-32) mmol/L Anion Gap (5-15) mmol/L BUN (7-18) mg/dL Creatinine (0.70-1.30) mg/dL Est Cr Clr Drug Dosing Estimated GFR (MDRD) Glucose (74-106) mg/dL Lactic Acid (0.4-2.0) mmol/L Calcium (8.5-10.1) mg/dL Corrected Calcium (8.5-10.1) mg/dL Magnesium (1.8-2.4) mg/dL Total Bilirubin (0.2-1.0) mg/dL AST (15-37) U/L ALT (16-63) U/L Alkaline Phosphatase (46-116) U/L Troponin I High Sens (<=76) ng/L Total Protein (6.4-8.2) g/dL Albumin (3.4-5.0) g/dL Globulin Albumin/Globulin Ratio SARS CoV-2 RNA Rapid MARTITA Negative (NEGATIVE) Meds: Medications Generic Name Dose Route Start Last Admin Trade Name Freq PRN Reason Stop Dose Admin Acetaminophen 650 mg 10/07/20 15:45 Acetaminophen 325 Mg Tab PO Q4H PRN Pain (Mild 1-3)/fever Al Hydroxide/Mg Hydroxide 30 ml 10/07/20 17:00 10/07/20 17:05 Gi Cocktail Oral Solution 30 Ml PO Not Given TIDAC [facility] Allopurinol 100 mg 10/08/20 08:00 Allopurinol 100 Mg Tab PO DAILY [facility] Atenolol 50 mg 10/08/20 08:00 Atenolol 50 Mg Tab PO DAILY [facility] Atorvastatin Calcium 20 mg 10/07/20 20:00 Atorvastatin 10 Mg Tab PO BEDTIME [facility] Bisacodyl 5 mg 10/07/20 17:27 10/07/20 17:39 Bisacodyl 5 Mg Tab PO 5 mg DAILY PRN Administration Constipation Dexamethasone 4 mg 10/08/20 08:00 Dexamethasone 4 Mg Tab PO 10/15/20 08:01 DAILY [facility] Hydromorphone HCl 2 mg 10/07/20 17:07 Hydromorphone 2 Mg Tab PO Q3H PRN Pain Promethazine HCl 6.25 mg/ 100.25 mls @ 400 mls/hr 10/07/20 16:05 Sodium Chloride IV Q6H PRN Nausea/Vomiting Potassium Chloride/Dextrose/Sod Cl 1,000 mls @ 75 mls/hr 10/07/20 17:15 10/07/20 17:35 D5 Ns With 20 Meq Kcl IV 75 mls/hr ASDIRECTED [facility] Administration Levothyroxine Sodium 100 mcg 10/08/20 08:00 Levothyroxine 100 Mcg Tab PO DAILY [facility] Lidocaine HCl 30 ml 10/07/20 15:57 Lidocaine 2% Viscous Solution 100 Ml Bottle PO QID PRN Pain Magnesium Oxide 400 mg 10/07/20 17:15 10/07/20 17:57 Magnesium Oxide 400 Mg Tab PO 400 mg BID JAIDEN Administration Olanzapine 10 mg 10/07/20 20:00 Olanzapine 5 Mg Tab PO BEDTIME [facility] Omeprazole 20 mg 10/08/20 08:00 Omeprazole 20 Mg Cap.Cr PO DAILY [facility] Ondansetron HCl 4 mg 10/07/20 17:07 10/07/20 17:35 Ondansetron 4 Mg/2 Ml Sdv IVPUSH 4 mg Q8H PRN Administration Nausea Ondansetron HCl 4 mg 10/07/20 17:08 Ondansetron 4 Mg Tab.Dis PO Q4H PRN Nausea/Vomiting Pharmacy Consult 1 each 10/07/20 16:00 Pharmacy Consult Order .XX ASDIRECTED JAIDEN Senna/Docusate Sodium 1 tab 10/07/20 17:30 10/07/20 17:40 Docusate Sodium/Sennosides 50-8.6 Mg Tab PO 1 tab BID JAIDEN Administration Sodium Chloride 10 ml 10/07/20 17:35 10/07/20 17:54 Sodium Chloride 0.9% 10 Ml Syringe FLUSH 10 ml ASDIRECTED PRN Administration FLUSH Discontinued Medications Generic Name Dose Route Start Last Admin Trade Name Freq PRN Reason Stop Dose Admin Al Hydroxide/Mg Hydroxide 30 ml 10/07/20 17:00 10/07/20 16:33 Gi Cocktail Oral Solution 30 Ml PO 30 ml TIDAC JAIDEN Administration Dexamethasone 4 mg 10/08/20 08:00 Dexamethasone 4 Mg Tab PO 10/12/20 10:00 DAILY [facility] Lactated Ringer's 1,000 mls @ 999 mls/hr 10/07/20 13:47 10/07/20 14:00 Ringers, Lactated IV 10/07/20 14:47 999 mls/hr ONETIME ONE Administration Dextrose/Lactated Ringer's 1,000 mls @ 75 mls/hr 10/07/20 16:15 Dextrose 5%-Lactated Ringers IV ASDIRECTED [facility] Ondansetron HCl 4 mg 10/07/20 15:45 Ondansetron 4 Mg/2 Ml Sdv IV Q6H PRN Nausea/Vomiting Oxycodone HCl 5 mg 10/07/20 15:57 Oxycodone 5 Mg Tab PO Q4H PRN Pain Oxycodone HCl 5 mg 10/07/20 16:42 Oxycodone 5 Mg Tab PO Q4H PRN Pain Phytonadione 200 mcg 10/08/20 08:00 Phytonadione 100 Mcg Tab PO DAILY [facility] Warfarin Sodium 10 mg 10/07/20 16:00 10/07/20 16:33 Warfarin 5 Mg Tab PO 10/07/20 16:01 10 mg ONETIME ONE Administration - Re-Assessments/Exams Free Text/Narrative Re-Assessment/Exam: 10/07/20 18:58 IV was established labs were drawn. Blood cultures x2 pending. 1 L LR wide open. CBC with white blood cell count of 6.7, hemoglobin 13.4 platelet 72. INR 1.3 with a PT of 14.9. CMP shows a sodium 138, potassium 3.4 BUN 21, creatinine 0.9 calcium is low at 7.9 his total protein is quite low at 5.4 as well as his albumin at 1.9. Magnesium 1.6. Lactic acid 2.3. Urinalysis pending upon admission. This patient is showing clear signs of outpatient failure treatment. His malnutrition is gotten out of control at home. He is barely able to eat anything. They have had discussions about a feeding tube with his oncologist although there is nothing on the table at this time. He really does not feel like he can do it at home. I talked with his primary care provider Dr. Diandra Houston. We will admit him under observation under the care of Dr. Diandra Houston. He was given multiple liquid cell protein drinks in the emergency department and suggested to drink them I think this is a big aspect of his malnutrition and his weakness. We will continue IV hydration on the floor. He is comfortable with this plan and his questions are answered. Departure - Departure Time of Disposition: 15:12 Disposition: Refer to Observation Clinical Impression: Generalized weakness Esophageal cancer Qualifiers: Malignant neoplasm of esophagus location: unspecified location Qualified Code(s): C15.9 - Malignant neoplasm of esophagus, unspecified - Discharge Information *PRESCRIPTION DRUG MONITORING PROGRAM REVIEWED*: Not Applicable *COPY OF PRESCRIPTION DRUG MONITORING REPORT IN PATIENT KATIE: Not Applicable Sepsis Event Note (ED) - Focused Exam Vital Signs: Vital Signs Temp Pulse Resp BP Pulse Ox 10/07/20 12:40 97.7 F 84 18 117/79 97 - My Orders Last 24 Hours: My Active Orders 10/07/20 13:25 EKG Documentation Completion [RC] STAT UA RFX BERTHA AND CULT IF INDIC [URIN] Stat 10/07/20 13:30 Blood Culture x2 Reflex Set [OM.PC] Stat 10/07/20 13:55 CULTURE BLOOD [BC] Stat 10/07/20 14:10 CULTURE BLOOD [BC] Stat - Assessment/Plan Last 24 Hours: My Active Orders 10/07/20 13:25 EKG Documentation Completion [RC] STAT UA RFX BERTHA AND CULT IF INDIC [URIN] Stat 10/07/20 13:30 Blood Culture x2 Reflex Set [OM.PC] Stat 10/07/20 13:55 CULTURE BLOOD [BC] Stat 10/07/20 14:10 CULTURE BLOOD [BC] Stat
--- NOTE | 2020-10-07 15:40 | PCM.EKG ---
#1 Interpretation EKG Date: 10/07/20 Time: 14:13 Rhythm: A-Fib Rate (Beats/Min): 82 [place]: Normal P-Wave: Present QRS: Normal ST-T: Normal QT: Prolonged Comparison: Change From Previous EKG (Prolonged QT and Lateral T wave inversion.)
[2020-10-07] MEDS ORDERED: Ondansetron 4 MG/2 ML SDV IV PRN (15:45)
[2020-10-07] MEDS ORDERED: Acetaminophen 325 MG Tab PO PRN (15:45)
[2020-10-07] MEDS ORDERED: Lidocaine 2% Viscous Solution 100 ML Bottle PO PRN (15:57)
[2020-10-07] MEDS ORDERED: oxyCODONE 5 MG Tab PO PRN ×2 (15:57→16:42)
[2020-10-07] MEDS ORDERED: Warfarin 5 MG Tab PO ONE (16:00)
[2020-10-07] MEDS ORDERED: Promethazine 6.25 MG in Sodium Chloride 0.9% 100 ML IV PRN (16:05)
[2020-10-07] MEDS ORDERED: Dextrose 5%-Lactated Ringers 1,000 ML IV SCH (16:15)
[2020-10-07] MEDS ORDERED: GI Cocktail Oral Solution 30 ML PO SCH (17:00)
[2020-10-07] MEDS: GI Cocktail Oral Solution 30 ML PO SCH (17:05)
[2020-10-07] MEDS ORDERED: Ondansetron 4 MG Tab.DIS PO PRN (17:08)
[2020-10-07] MEDS ORDERED: Bisacodyl 5 MG Tab PO PRN (17:27)
[2020-10-07] MEDS: Ondansetron 4 MG/2 ML SDV IVPUSH PRN (17:35)
[2020-10-07] MEDS: Dextrose 5%-0.9% NaCl with KCl 1,000 ML IV SCH (17:35)
[2020-10-07] MEDS: Sodium Chloride 0.9% 10 ML Syringe FLUSH PRN (17:54)
[2020-10-07] MEDS: Magnesium Oxide 400 MG Tab PO SCH ×2 (17:57→20:22)
[2020-10-07] MEDS: atorvaSTATin 10 MG Tab PO SCH (20:21)
[2020-10-07] MEDS: HYDROmorphone 2 MG Tab PO PRN (20:21)
[2020-10-07] MEDS: OLANZapine 5 MG Tab PO SCH (20:22)
--- NOTE | 2020-10-07 23:15 | HP ---
CHIEF COMPLAINT: Weakness. HISTORY OF PRESENT ILLNESS: This is an 85-year-old male who has recently completed chemo and radiation treatments for esophageal cancer, who was so weak at home he could hardly get dressed or out of his bedroom. He had similar symptoms yesterday morning and came to the clinic for his regularly scheduled fluids. Upon arrival and getting fluids, I did visit with the patient, but he was feeling much better, so elected to go home rather than for hospital admission. The patient was not having any fever. No shaking chills. No cough. No shortness of breath. He was having some nausea. He gets stomach pain when he takes the oxycodone. His throat pain was getting better on the dexamethasone and using the lidocaine, but he still was not having much of an oral intake. In the ER, patient was found to have normal white count, mildly low potassium and magnesium. He reports also his last bowel movement has not been since Sunday. ALLERGIES: Include none. MEDICATIONS: His medication list was reviewed and included lidocaine viscous 30 mL q.i.d. p.r.n., Compazine 10 mg q.i.d. p.r.n. for nausea, allopurinol 100 mg daily, atenolol 50 mg daily, Lipitor 20 mg at bedtime, dexamethasone 4 mg daily. Levothyroxine 100 mcg daily, Zyprexa 10 mg at bedtime, omeprazole 20 mg daily, oxycodone 5 mg as needed for pain, vitamin K 200 mcg daily, and warfarin 5 mg daily. PAST MEDICAL HISTORY: Includes atrial fibrillation, on Coumadin; esophageal cancer, recently diagnosed; history of TIA; history of gout; hyperlipidemia; hypothyroidism; impaired fasting glucose. PAST SURGICAL HISTORY: He has had bilateral knee replacements, he has had some squamous cell skin cancers removed, tonsillectomy, carpal tunnel, vasectomy, endoscopies. FAMILY HISTORY: Both parents are . Brother . The patient is not currently using alcohol. No current tobacco. REVIEW OF SYSTEMS: General: The patient has felt generally weak. He has lost some weight due to the cancer. HEENT: His throat is not sore. No significant trouble swallowing currently. Cardiac: No chest pain. No palpitations. Respiratory: No cough, no shortness of breath. Abdomen: As stated in HPI, for nausea, otherwise he has no abdominal pain. No diarrhea. Musculoskeletal: He has not had no new joint aches or pains. Neurologic: No confusion. Physical exam General: No acute distressed, no jaundice HEENT. No lymphadenopathy or swelling in the neck Heart: Irregular without murmurs Lungs: Clear to auscultation without crackles or wheezes Abdomen positive bowel sounds and non tender Extremities mild pitting edema which is generalized and new to the left arm IV access he has no Port in place Skin no redness or bruising Otherwise, all systems reviewed and found to be negative unless otherwise stated. LABORATORY DATA: His lab work did show white count 6.7, hemoglobin 13.4, platelets are 72, which is actually up from 71 a week ago. INR is just 1.3, it was 6.7 a week ago. Sodium 138, potassium 3.4, chloride 102, bicarb 29, BUN 21, creatinine 0.9, glucose 105, lactic 2.3, calcium 7.9, magnesium 1.6, bilirubin normal. ALT, AST normal. Alkaline phosphatase normal. Albumin 1.9. COVID testing negative. EKG shows atrial fibrillation, it was done in the ER. UA pending. Blood cultures sent. ASSESSMENT AND PLAN: 1. Severe dehydration and malnutrition due to recent chemo and radiation for esophageal cancer. IV fluid dependent, getting it every other day as an outpatient. The patient will be admitted here for further IV fluids. 2. Weakness, likely due to orthostasis from severe malnutrition. We will get the patient up and working with therapies and try to rehydrate him. 3. Hypomagnesemia and hypokalemia. We will replace IV and orally. 4. Constipation, likely due to opioids. I will start him on a bowel regimen with senna, with a magnesium supplement. I will have p.r.n. Dulcolax. 5. Nausea. Zofran will be available. 6. Atrial fibrillation. He is rate controlled. We will continue the atenolol. His INR is subtherapeutic. He got 10 mg of Coumadin. We will recheck tomorrow. I will hold the low-dose daily vitamin K. 7. Esophageal cancer. Discussed with the specialist. He is now on dexamethasone to help with symptoms. They think things should improve for him with eating over the next couple of weeks. If not, would consider potentially a PEG tube. The patient is admitted for fluids, lab monitoring, and therapies. He will be under observation cares. He is very interested in transitioning over to swing bed for a short-term stay. His daughter was at the bedside when we discussed this. For DVT prophylaxis, if his INR is still quite low tomorrow, I will likely dose him with Lovenox. He is denying any bleeding. He is a code level 3. He does not want any CPR. He has had some increasing weakness at home after chemo and radiation treatments from cancer. MKA: 10/07/2020 17:40:59 MODL: 10/07/2020 23:05:46 /[id number]
[2020-10-08] MEDS: HYDROmorphone 2 MG Tab PO PRN (02:21)
[2020-10-08] MEDS: GI Cocktail Oral Solution 30 ML PO SCH ×3 (06:30→17:13)
[2020-10-08] MEDS: Dextrose 5%-0.9% NaCl with KCl 1,000 ML IV SCH (06:30)
[2020-10-08 07:12] LABS: PTT,PARTIAL THROMBOPLSTIN TIME 39.2 SEC (25.6-32.8)
[2020-10-08 07:29] LABS: CHLORIDE,CL 105 mmol/L (98-107); SODIUM,NA 141 mmol/L (136-145)
[2020-10-08 07:30] LABS: ANION GAP 7.1 mmol/L (5-15)
[2020-10-08] MEDS ORDERED: Phytonadione 100 MCG Tab PO SCH (08:00)
[2020-10-08] MEDS ORDERED: Warfarin 5 MG Tab PO SCH (08:00)
[2020-10-08] MEDS: Atenolol 50 MG Tab PO SCH (08:00)
[2020-10-08] MEDS ORDERED: Dexamethasone 4 MG Tab PO SCH (08:00)
[2020-10-08] MEDS: Magnesium Oxide 400 MG Tab PO SCH ×2 (08:01→20:22)
[2020-10-08] MEDS: Omeprazole 20 MG Cap.CR PO SCH (08:01)
[2020-10-08] MEDS: Levothyroxine 100 MCG Tab PO SCH (08:01)
[2020-10-08] MEDS: Allopurinol 100 MG Tab PO SCH (08:01)
[2020-10-08] MEDS: Dexamethasone 4 MG Tab PO SCH (08:02)
[2020-10-08] MEDS: Potassium Chloride 10% 20 MEQ/15 ML Soln 15 ML UD Cup PO SCH ×3 (09:27→20:22)
[2020-10-08] MEDS: Lidocaine 2% Viscous Solution 15 ML Cup PO PRN ×2 (12:44→18:06)
[2020-10-08] MEDS ORDERED: Bisacodyl 10 MG Supp RECTAL PRN (16:22)
--- NOTE | 2020-10-08 17:17 | PN ---
Progress Note for STARLA FREED Date: 10/08/2020 Room #: VM.218 SUBJECTIVE: This is hospital day #2 on an 85-year-old admitted through the ER yesterday due to weakness at home and dehydration. The patient has just completed chemotherapy and radiation for esophageal cancer and has esophageal pain and has had limited oral intake. He has been getting fluids every other day through the clinic. He has not had any fever or chills. No cough. He took some oxycodone, and it was hurting his stomach. He has not had a bowel movement for 5 days. The patient was started on dexamethasone from his Oncology Service and some lidocaine solutions, which have helped the pain. The patient is on Coumadin. His levels were running quite high, then over a week ago was 6.7, so his Coumadin was held, and it was just 1.3 yesterday. He got a dose of 10 mg and is up to 1.8 today. He had been previously adjusted down now to about 2.5 alternating with 5 mg daily and in fact was taking oral vitamin K 200 per day. Lactic acid was positive at 2.3 on admission, but it was not even repeated as no source of infection was found in his urine, and clinically, he did not have any infection. The patient does take Coumadin for atrial fibrillation. He has never had a stroke. He has not had any confusion or memory problems. He is not having any chest pain. Daughter was at the bedside yesterday. OBJECTIVE: Vital Signs: This morning, his weight is 66.6 kg, actually up from 63.9 kg; his temperature is 97.8; pulse 97; blood pressure 121/69; respiratory rate 16; and O2 saturation 93 on room air. General: He is in no acute distress. Heart: His heart is irregularly irregular. Lungs: His lung sounds are clear to auscultation bilaterally without crackles or wheezes. Abdomen: Has positive bowel sounds. It is soft, nondistended, and nontender. Extremities: Warm and dry. Legs, just trace edema to the ankles. He does have coolness to both hands and slight pitting edema on that left arm, worse than the right arm but does have some generalized mild anasarca. LABORATORY DATA: Lab work today did show his hemoglobin 12.5, white count 5.3, and platelets 60, they had been low since recent chemotherapy. INR up to 1.8. Sodium 141, potassium 3.1, chloride 105, bicarbonate 32, BUN 27, creatinine 0.9, glucose 139, calcium 7.4, magnesium 1.8, albumin was 1.9 yesterday, and TSH 4.0. ASSESSMENT: 1. Severe malnutrition, likely causing the peripheral edema. We will encourage protein supplements. He is actually starting to eat a little here, and it has been going well. We will have him working with Dietary. 2. Severe dehydration. We will continue the D5 normal saline for now, likely discontinue that later today or tomorrow morning. 3. Hypokalemia. We will replace intravenous and orally. 4. Hypomagnesemia. He is on oral supplements. 5. Constipation. He is on a bowel regimen. 6. Cancer-related pain. He is doing well with the Dilaudid. He took 1 dose during the night. We will go ahead and order that and get rid of his oxycodone. 7. Nausea. He has Zofran available. 8. Weakness related to cancer treatments. 9. Thrombocytopenia without bleeding related to cancer treatments. 10.Atrial fibrillation, rate controlled. His INR is up to 1.8. We will hold off on any Lovenox given his thrombocytopenia. 11.Esophageal cancer, status post recent treatments. We will see how he does over the next few days. Expect that he will need some support with fluids and liquid nutrition over the coming weeks. If he does not improve, consider a PEG tube. PLAN: The patient will continue observation today. We will continue the IV fluids. We will increase potassium supplements. We will repeat lab work tomorrow including potassium and INR. We will continue his bowel regimen and use a suppository or Dulcolax if needed. We will hold off on any Lovenox at this point, and if INR is greater than 2 tomorrow, we would encourage restarting low-dose vitamin K. He will also work with therapies today. The plan, the patient will likely transition over to self-pay swing tomorrow unless his electrolytes worsen to the point of needing IVs. 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 MKA: 10/08/2020 16:23:37 MODL: 10/08/2020 17:11:53 /[id number]
[2020-10-08] MEDS ORDERED: Warfarin 2.5 MG Tab PO SCH (20:00)
[2020-10-08] MEDS ORDERED: Warfarin 2.5 MG Tab PO ONE (20:00)
[2020-10-08] MEDS: OLANZapine 5 MG Tab PO SCH (20:21)
[2020-10-08] MEDS: atorvaSTATin 10 MG Tab PO SCH (20:21)
[2020-10-09] MEDS: GI Cocktail Oral Solution 30 ML PO SCH ×3 (05:59→17:14)
[2020-10-09 08:08] LABS: CHLORIDE,CL 106 mmol/L (98-107); SODIUM,NA 140 mmol/L (136-145)
[2020-10-09] MEDS ORDERED: Sodium Chloride 0.9% 500 ML IV ONE (08:23)
--- NOTE | 2020-10-09 09:13 | CR ---
[id number] RAD/RAD Chest PA or AP 1V EXAM: FRONTAL CHEST INDICATION: HYPOXIA, TACHYPNEA. COMPARISON: None. DISCUSSION: There are patchy multifocal bilateral infiltrates, right greater than left. These findings are nonspecific, could be seen in infection including COVID 19 is favored. Heart size without evidence of edema. No effusions. IMPRESSION: 1. Bilateral infiltrates most suggestive of infection including COVID 19. Nathaniel Jonas MD 10/09/20 0912 Thank you for allowing us to participate in the care of your patient.
[2020-10-09] MEDS ORDERED: Piperacillin/Tazobactam 4.5 GM in Sodium Chloride 0.9% 100 ML IV SCH (09:30)
[2020-10-09] MEDS: Atenolol 50 MG Tab PO SCH (09:39)
--- NOTE | 2020-10-09 09:59 | PCM.PN ---
- General Info Date of Service: 10/09/20 Admission Dx/Problem (Free Text): weakness, dehydration Subjective Update: Jair Leon is an 85-year-old male who is hospital day 3 for treatment of dehydr ation and weakness. Past medical history is most notable for esophageal cancer which he has recently completed chemo and radiation. Has been coming into the clinic for IV fluids due to dehydration. After coming into the clinic on 10/06/2020 for IV fluids he later presented to the ER that night for recurrence of his symptoms and was admitted. He is admitted for continued IV fluids as well as treatment of some mild Y disturbances and to work with therapies. Earlier this morning I was paged for a low blood pressure of 80/50. His vital signs were normal. Decision was made to watch and wait and hold his morning blood pressure meds until I saw him on rounds. Upon arriving on rounds patient s was noted to be very groggy, not alert to questioning. Vital signs were obtained and his systolic blood pressure was in the 50s. He was breathing deep and heavy with respiratory rate in the 30s. Oxygen saturations were low in the 60s and 70s. Patient was placed on O2 per nasal cannula and at 14 L he was still saturating in the lower to mid 80s. Nonrebreather was placed and he would still run in the mid 80s with some desats into the 70s. Respiratory therapy did look up the high flow nasal cannula which did eventually bring him up to mid 90s for saturations. He is currently running at 55 at 100% SPO2. A chest x-ray was obtained which did demonstrate significant effusion throughout the right lung as well as the left lower lobe. Daughter was informed of patients rapid deteriorated clinical condition and did arrive after he was stabilized. Once vitals were more stable patient did alert and speak with provider and have a conversation with his daughter. Given the underlying esophageal troubles my concern is for aspiration pneumonia. Patient is started on IV Zosyn. It should be noted the patients INR was fairly low at the time of admit and he was given high-dose of warfarin. INR yesterday was 1.8; today it is 3.8. We did talk about my concerns for his acute condition. I do think that we can continue to treat him and support him through the suspected pneumonia. We did speak with his son who is living in [place] as well. Plan at this time will be to continue with support of the blood pressure with IV fluids as well as treatment of the pneumonia with IV antibiotics as well as oxygen as needed. We did discuss potential for pressor support if needed. Patient had noted at the time of admission that he did not want anything over and beyond; he is a DNR/DNI. Patients kids would like for me to continue to support him up to the point of intubation/chest compressions. Hope is that we can turn around from this acute illness however I did voice some concerns about recurrence of this condition if this is aspiration pneumonia secondary to his esophageal cancer/radiation treatments. I did speak with patients primary care provider for a [facility] consult this morning. Given his cancer there is some concern for some adrenal impairment and decision was made to initiate him on some hydrocortisone 125 every 6 hours for some additional pressor support. Well continue to support with IV fluids. We do have the potential for using Midodrine. If this fails we might have to go ahead with pressure support if needed. Functional Status: Reports: Pain Controlled - Review of Systems General: Reports: No Symptoms HEENT: Reports: No Symptoms Pulmonary: Reports: No Symptoms Cardiovascular: Reports: No Symptoms Gastrointestinal: Reports: No Symptoms Genitourinary: Reports: No Symptoms Musculoskeletal: Reports: No Symptoms Skin: Reports: No Symptoms Neurological: Reports: Confusion Psychiatric: Reports: Confusion - Patient Data Vitals - Most Recent: Last Vital Signs Temp 98.2 F 10/09/20 09:47 Pulse 97 10/09/20 09:47 Resp 32 H 10/09/20 09:47 BP 72/41 L 10/09/20 09:47 Pulse Ox 92 L 10/09/20 09:47 Weight - Most Recent: 147 lb I&O - Last 24 Hours: Intake & Output 10/08/20 10/09/20 10/09/20 22:59 06:59 14:59 Intake Total 1400 175 Output Total 550 Balance 1400 -375 Lab Results Last 24 Hours: Laboratory Results - last 24 hr 10/09/20 10/09/20 10/09/20 Range/Units 07:40 07:40 07:40 WBC 4.8 (4.0-10.0) x10^3/uL RBC 3.70 L (4.5-6.0) x10^6/uL Hgb 12.9 L (14.0-18.0) g/dL Hct 37.7 L (40.0-52.0) % MCV 101.9 H (78.0-93.0) fL MCH 34.9 H (26.0-32.0) pg MCHC 34.2 (32.0-36.0) g/dL RDW Coeff of Denis 17.1 H (10.0-15.0) % Plt Count 54 L (130-400) x10^3/uL PT 42.2 H D (9.9-12.5) SEC INR 3.8 H (2.0-3.5) Sodium 140 (136-145) mmol/L Potassium 4.0 (3.5-5.1) mmol/L Chloride 106 (98-107) mmol/L Carbon Dioxide 27 (21-32) mmol/L Anion Gap 11.0 (5-15) mmol/L BUN 24 H (7-18) mg/dL Creatinine 1.1 (0.70-1.30) mg/dL Est Cr Clr Drug Dosing 47.99 mL/min Estimated GFR (MDRD) > 60 Glucose 103 (74-106) mg/dL Calcium 7.6 L (8.5-10.1) mg/dL Magnesium 1.8 (1.8-2.4) mg/dL Franck Results Last 24 Hours: Microbiology 10/07/20 14:10 Aerobic Blood Culture - Preliminary Blood - Venous - Lab Draw NO GROWTH AFTER 1 DAY Anaerobic Blood Culture - Preliminary NO GROWTH AFTER 1 DAY 10/07/20 13:55 Aerobic Blood Culture - Preliminary Blood - Venous NO GROWTH AFTER 1 DAY Anaerobic Blood Culture - Preliminary NO GROWTH AFTER 1 DAY Med Orders - Current: Current Medications Acetaminophen (Acetaminophen 325 Mg Tab) 650 mg PO Q4H PRN PRN Reason: Pain (Mild 1-3)/fever Al Hydroxide/Mg Hydroxide (Gi Cocktail Oral Solution 30 Ml) 30 ml PO TIDAC [facility] Last Admin: 10/09/20 05:59 Dose: 30 ml Documented by: Allopurinol (Allopurinol 100 Mg Tab) 100 mg PO DAILY [facility] Last Admin: 10/08/20 08:01 Dose: 100 mg Documented by: Atenolol (Atenolol 50 Mg Tab) 50 mg PO DAILY [facility] Last Admin: 10/09/20 09:39 Dose: Not Given Documented by: Atorvastatin Calcium (Atorvastatin 10 Mg Tab) 20 mg PO BEDTIME [facility] Last Admin: 10/08/20 20:21 Dose: 20 mg Documented by: Bisacodyl (Bisacodyl 5 Mg Tab) 5 mg PO DAILY PRN PRN Reason: Constipation Last Admin: 10/07/20 17:39 Dose: 5 mg Documented by: Bisacodyl (Bisacodyl 10 Mg Supp) 10 mg RECTAL DAILY PRN PRN Reason: Constipation Dexamethasone (Dexamethasone 4 Mg Tab) 4 mg PO DAILY [facility] Stop: 10/15/20 08:01 Last Admin: 10/08/20 08:02 Dose: 4 mg Documented by: Hydromorphone HCl (Hydromorphone 2 Mg Tab) 2 mg PO Q3H PRN PRN Reason: Pain Last Admin: 10/08/20 02:21 Dose: 2 mg Documented by: Promethazine HCl 6.25 mg/ (Sodium Chloride) 100.25 mls @ 400 mls/hr IV Q6H PRN PRN Reason: Nausea/Vomiting Potassium Chloride/Dextrose/Sod Cl (D5 Ns With 20 Meq Kcl) 1,000 mls @ 75 mls/hr IV ASDIRECTED [facility] Last Admin: 10/08/20 06:30 Dose: 75 mls/hr Documented by: Piperacillin Sod/Tazobactam (Sod 4.5 gm/ Sodium Chloride) 100 mls @ 200 mls/hr IV Q8H [facility] Stop: 10/09/20 09:59 Last Admin: 10/09/20 09:34 Dose: 200 mls/hr Documented by: Piperacillin Sod/Tazobactam (Sod 3.375 gm/ Sodium Chloride) 100 mls @ 25 mls/hr IV Q8H [facility] Levothyroxine Sodium (Levothyroxine 100 Mcg Tab) 100 mcg PO DAILY [facility] Last Admin: 10/08/20 08:01 Dose: 100 mcg Documented by: Lidocaine HCl (Lidocaine 2% Viscous Solution 15 Ml Cup) 30 ml PO QID PRN PRN Reason: PAIN Last Admin: 10/08/20 18:06 Dose: 30 ml Documented by: Magnesium Oxide (Magnesium Oxide 400 Mg Tab) 400 mg PO BID [facility] Last Admin: 10/08/20 20:22 Dose: 400 mg Documented by: Olanzapine (Olanzapine 5 Mg Tab) 10 mg PO BEDTIME [facility] Last Admin: 10/08/20 20:21 Dose: 10 mg Documented by: Omeprazole (Omeprazole 20 Mg Cap.Cr) 20 mg PO DAILY [facility] Last Admin: 10/08/20 08:01 Dose: 20 mg Documented by: Ondansetron HCl (Ondansetron 4 Mg/2 Ml Sdv) 4 mg IVPUSH Q8H PRN PRN Reason: Nausea Last Admin: 10/07/20 17:35 Dose: 4 mg Documented by: Ondansetron HCl (Ondansetron 4 Mg Tab.Dis) 4 mg PO Q4H PRN PRN Reason: Nausea/Vomiting Phytonadione (Phytonadione 100 Mcg Tab) 200 mcg PO DAILY [facility] Potassium Chloride (Potassium Chloride 10% 20 Meq/15 Ml Soln 15 Ml Ud Cup) 10 meq PO TID [facility] Last Admin: 10/08/20 20:22 Dose: 10 meq Documented by: Senna/Docusate Sodium (Docusate Sodium/Sennosides 50-8.6 Mg Tab) 1 tab PO BID [facility] Last Admin: 10/08/20 20:22 Dose: 1 tab Documented by: Sodium Chloride (Sodium Chloride 0.9% 10 Ml Syringe) 10 ml FLUSH ASDIRECTED PRN PRN Reason: FLUSH Last Admin: 10/07/20 17:54 Dose: 10 ml Documented by: Warfarin Sodium (Warfarin 2.5 Mg Tab) 2.5 mg PO BEDTIME [facility] Last Admin: 10/08/20 20:22 Dose: 2.5 mg Documented by: Discontinued Medications Al Hydroxide/Mg Hydroxide (Gi Cocktail Oral Solution 30 Ml) 30 ml PO TIDAC [facility] Last Admin: 10/07/20 16:33 Dose: 30 ml Documented by: Dexamethasone (Dexamethasone 4 Mg Tab) 4 mg PO DAILY [facility] Stop: 10/12/20 10:00 Lactated Ringer's (Ringers, Lactated) 1,000 mls @ 999 mls/hr IV ONETIME ONE Stop: 10/07/20 14:47 Last Admin: 10/07/20 14:00 Dose: 999 mls/hr Documented by: Dextrose/Lactated Ringer's (Dextrose 5%-Lactated Ringers) 1,000 mls @ 75 mls/hr IV ASDIRECTED [facility] Sodium Chloride (Normal Saline) 500 mls @ 500 mls/hr IV ONETIME ONE Stop: 10/09/20 09:22 Last Admin: 10/09/20 09:30 Dose: 500 mls/hr Documented by: Lidocaine HCl (Lidocaine 2% Viscous Solution 100 Ml Bottle) 30 ml PO QID PRN PRN Reason: Pain Ondansetron HCl (Ondansetron 4 Mg/2 Ml Sdv) 4 mg IV Q6H PRN PRN Reason: Nausea/Vomiting Oxycodone HCl (Oxycodone 5 Mg Tab) 5 mg PO Q4H PRN PRN Reason: Pain Last Admin: 10/08/20 12:13 Dose: 5 mg Documented by: Oxycodone HCl (Oxycodone 5 Mg Tab) 5 mg PO Q4H PRN PRN Reason: Pain Pharmacy Consult (Pharmacy Consult Order) 1 each .XX ASDIRECTED JAIDEN Phytonadione (Phytonadione 100 Mcg Tab) 200 mcg PO DAILY [facility] Warfarin Sodium (Warfarin 5 Mg Tab) 10 mg PO ONETIME ONE Stop: 10/07/20 16:01 Last Admin: 10/07/20 16:33 Dose: 10 mg Documented by: Warfarin Sodium (Warfarin 2.5 Mg Tab) 7.5 mg PO ONETIME ONE Stop: 10/08/20 20:01 - Exam Quality Assessment: Supplemental Oxygen (HF NC) General: Mild Distress, Moderate Distress (patient was not alert or cooperative initially, once vitals stabilized he perked up significantly) HEENT: EOMI, Other (Mucous membranes tacky) Neck: Supple Lungs: Decreased Breath Sounds, Rhonchi (Decreased breath sounds RLL, rhonchi in the RUL and LLL) Cardiovascular: Irregular Rhythm, Tachycardia GI/Abdominal Exam: Normal Bowel Sounds, Soft, Non-Tender Extremities: Normal Inspection, Other (edema to the bilateral hands and feet: trace) Peripheral Pulses: 1+: Radial (L), Radial (R) Skin: Warm, Dry - Patient Data Lab Results Last 24 hrs: Laboratory Results - last 24 hr 10/09/20 10/09/20 10/09/20 Range/Units 07:40 07:40 07:40 WBC 4.8 (4.0-10.0) x10^3/uL RBC 3.70 L (4.5-6.0) x10^6/uL Hgb 12.9 L (14.0-18.0) g/dL Hct 37.7 L (40.0-52.0) % MCV 101.9 H (78.0-93.0) fL MCH 34.9 H (26.0-32.0) pg MCHC 34.2 (32.0-36.0) g/dL RDW Coeff of Denis 17.1 H (10.0-15.0) % Plt Count 54 L (130-400) x10^3/uL PT 42.2 H D (9.9-12.5) SEC INR 3.8 H (2.0-3.5) Sodium 140 (136-145) mmol/L Potassium 4.0 (3.5-5.1) mmol/L Chloride 106 (98-107) mmol/L Carbon Dioxide 27 (21-32) mmol/L Anion Gap 11.0 (5-15) mmol/L BUN 24 H (7-18) mg/dL Creatinine 1.1 (0.70-1.30) mg/dL Est Cr Clr Drug Dosing 47.99 mL/min Estimated GFR (MDRD) > 60 Glucose 103 (74-106) mg/dL Calcium 7.6 L (8.5-10.1) mg/dL Magnesium 1.8 (1.8-2.4) mg/dL Result Diagrams: 10/09/20 07:40 10/09/20 07:40 Franck Results Last 24 hrs: Microbiology 10/07/20 14:10 Aerobic Blood Culture - Preliminary Blood - Venous - Lab Draw NO GROWTH AFTER 1 DAY Anaerobic Blood Culture - Preliminary NO GROWTH AFTER 1 DAY 10/07/20 13:55 Aerobic Blood Culture - Preliminary Blood - Venous NO GROWTH AFTER 1 DAY Anaerobic Blood Culture - Preliminary NO GROWTH AFTER 1 DAY Sepsis Event Note - Evaluation Sepsis Screening Result: No Definite Risk - Focused Exam Vital Signs: Vital Signs Temp Temp Pulse Resp BP Pulse Ox Pulse Ox 10/09/20 09:47 98.2 F 97 32 H 72/41 L 92 L 10/09/20 08:55 97 10/09/20 06:00 97.9 F 100 18 82/48 L 89 L 10/09/20 02:00 99.0 F 80 17 88 L - Problem List & Annotations (1) Dehydration SNOMED Code(s): 24902993 Code(s): E86.0 - DEHYDRATION Status: Acute Current Visit: Yes (2) Hypovolemic shock SNOMED Code(s): 01844859 Code(s): R57.1 - HYPOVOLEMIC SHOCK Status: Acute Current Visit: Yes (3) Hypoxia SNOMED Code(s): 505335277 Code(s): R09.02 - HYPOXEMIA Status: Acute Current Visit: Yes (4) Pneumonia, aspiration SNOMED Code(s): 852666163 Code(s): J69.0 - PNEUMONITIS DUE TO INHALATION OF FOOD AND VOMIT Status: Acute Current Visit: Yes (5) Esophageal cancer SNOMED Code(s): 536282700 Code(s): C15.9 - MALIGNANT NEOPLASM OF ESOPHAGUS, UNSPECIFIED Status: Acute Current Visit: Yes Qualifiers: Malignant neoplasm of esophagus location: unspecified location Qualified Code(s): C15.9 - Malignant neoplasm of esophagus, unspecified (6) Generalized weakness SNOMED Code(s): 98291012 Code(s): R53.1 - WEAKNESS Status: Acute Current Visit: Yes - Problem List Review Problem List Initiated/Reviewed/Updated: Yes - My Orders Last 24 Hours: My Active Orders 10/09/20 08:38 RT Oxygen High Flow [RESPCARE] Stat 10/09/20 09:10 Admission Status [Patient Status] [ADT] Routine 10/09/20 09:24 Dietary Supplements [RC] BIDMEALS 10/09/20 09:30 Piperacillin/Tazobactam [Zosyn] 4.5 gm Sodium Chloride 0.9% [Normal Saline] 100 ml IV Q8H 10/09/20 09:45 Phytonadione [Vitamin K] 200 mcg PO DAILY 10/10/20 07:00 CBC W/O DIFF,HEMOGRAM [HEME] Routine CMP [COMPREHENSIVE METABOLIC PN,CMP] [CHEM] Routine - Assessment Assessment:: Jair Leon is an 85yoM who is hospital day #3 for treatment of dehydration and weakness Hypovolemic shock Severe Dedehydration -Patients D5 normal saline was completed yesterday evening. Patient presented with significantly low blood pressures this morning. -Decent response to IV fluid boluses: 1 L total Plan: -Continue normal saline at 100 mils per hour -Solu-Cortef 125 every 6 hours -Could consider additional fluid boluses, Midodrine, or vasopressor support if needed -Holding atenolol -BMP in the am Suspected aspiration pneumonia -Patient with acute respiratory decompensation this morning requiring use of high flow nasal cannula -Chest x-ray showing infiltrates throughout the whole right lung as well as within the left lower lung field -Some thought should be given to the potential for a PE however patient 4 extremities are not swollen or red. He did have a lower INR tenderness admitted was given a large dose of warfarin and INR is 3.8 today. Plan: -Supplemental O2 as needed, respiratory therapy to follow. Continue high flow nasal cannula at this time however may try to wean is able -Zosyn 4.5 mg every 8 hours -Nothing by mouth except for meds -Nursing bedside swallow -CBC and repeat CXR in the am - planning for video swallow 10/11/20 Weakness Malnutrition -Generalized weakness due to chronic disease as well as poor nutrition Plan: - Continue to follow with therapies -Diet initiation as able, may need further discussion of feeding tube if unable to safely eat Hypokalemia and hypomagnesemia - improved, on oral supplementation Chronic: Constipation - likely 2/2 opioids, on a bowel regimen Cancer related pain - continued Dilaudid Nausea - Zofran when necessary Atrial fib - INR up to 3.8 today. We did go ahead and restart his vitamin K at 200 g daily. Holding warfarin at this time. Well recheck INR tomorrow Esophageal cancer, status post treatments Diet: Nothing by mouth at this time, nursing bedside swallow evaluation IV fluids: NS@100mL/hr CODE: DNR/DNI Disposition: Guarded. Patient was upgraded to acute care status today. We will continue the IV fluids as well as IV antibiotics for treatment of hypotension in the pneumonia. Status of patient at that time and current plan of care was discussed in great detail with his son and daughter. We will continue to monitor and support.
[2020-10-09] MEDS: Phytonadione 100 MCG Tab PO SCH (10:00)
[2020-10-09] MEDS: Levothyroxine 100 MCG Tab PO SCH (10:08)
[2020-10-09] MEDS: Omeprazole 20 MG Cap.CR PO SCH (10:08)
[2020-10-09] MEDS: Potassium Chloride 10% 20 MEQ/15 ML Soln 15 ML UD Cup PO SCH ×3 (10:08→20:34)
[2020-10-09] MEDS: Allopurinol 100 MG Tab PO SCH (10:09)
[2020-10-09] MEDS: Magnesium Oxide 400 MG Tab PO SCH ×2 (10:09→20:33)
[2020-10-09] MEDS: Ondansetron 4 MG/2 ML SDV IVPUSH PRN (10:09)
[2020-10-09] MEDS: Dexamethasone 4 MG Tab PO SCH (10:10)
[2020-10-09] MEDS ORDERED: Sodium Chloride 0.9% 1,000 ML IV SCH ×2 (10:25→12:00)
[2020-10-09] MEDS: Hydrocortisone Sodium Succinate 250 MG/2 ML SDV IV SCH ×3 (10:31→21:56)
[2020-10-09] MEDS: Sodium Chloride 0.9% 10 ML Syringe FLUSH PRN ×4 (10:32→18:15)
[2020-10-09] MEDS ORDERED: Sodium Chloride 0.9% 1,000 ML IV STA (11:00)
[2020-10-09] MEDS ORDERED: Flumazenil 0.1 MG/ML 5 ML MDV IVPUSH PRN (11:22)
[2020-10-09] MEDS ORDERED: LORazepam 2 MG/ML SDV IVPUSH PRN (11:22)
[2020-10-09] MEDS ORDERED: HYDROmorphone 1 MG/ML Syringe IVPUSH STA (11:52)
[2020-10-09] MEDS ORDERED: HYDROmorphone 1 MG/ML Syringe IVPUSH PRN (12:05)
[2020-10-09 12:25] LABS: ANION GAP 12.8 mmol/L (5-15); CHLORIDE,CL 110 mmol/L (98-107); SODIUM,NA 141 mmol/L (136-145)
[2020-10-09] MEDS ORDERED: Calcium Carbonate 750 MG Tab.Chew PO STA (12:34)
[2020-10-09] MEDS: Piperacillin/Tazobactam 3.375 GM in Sodium Chloride 0.9% 100 ML IV SCH (17:06)
[2020-10-09] MEDS: Sodium Chloride 0.9% 1,000 ML IV SCH (17:12)
[2020-10-09] MEDS: HYDROmorphone 0.5 MG/0.5 ML Syringe IVPUSH PRN (18:15)
[2020-10-09] MEDS: atorvaSTATin 10 MG Tab PO SCH (20:33)
[2020-10-09] MEDS: OLANZapine 5 MG Tab PO SCH (20:34)
[2020-10-10] MEDS: LORazepam 2 MG/ML SDV IVPUSH PRN ×4 (00:34→09:35)
[2020-10-10] MEDS: Piperacillin/Tazobactam 3.375 GM in Sodium Chloride 0.9% 100 ML IV SCH ×2 (00:40→09:39)
[2020-10-10] MEDS: Hydrocortisone Sodium Succinate 250 MG/2 ML SDV IV SCH ×2 (04:06→10:22)
[2020-10-10] MEDS: GI Cocktail Oral Solution 30 ML PO SCH ×2 (06:31→10:20)
[2020-10-10] MEDS: Sodium Chloride 0.9% 1,000 ML IV SCH (06:53)
[2020-10-10 08:25] LABS: ANION GAP 10.1 mmol/L (5-15); CHLORIDE,CL 112 mmol/L (98-107); SODIUM,NA 143 mmol/L (136-145)
[2020-10-10] MEDS ORDERED: Albumin 25% 25 GM in Sodium Chloride 0.9% 400 ML IV ONE ×3 (08:55→20:29)
--- NOTE | 2020-10-10 09:12 | CR ---
[id number] RAD/RAD Chest PA or AP 1V EXAM: FRONTAL CHEST INDICATION: PNEUMONIA. COMPARISON: October 09, 2020. DISCUSSION: Extensive right and moderate left sided airspace opacities have increased. A new or increased small to moderate pleural effusion is suggested. Cardiomegaly. The extent of underlying airspace opacities could obscure edema and correlation with clinical signs and symptoms is suggested. Tortuous thoracic aorta. IMPRESSION: 1. Increased bilateral infiltrates. 2. New or increased small to moderate right pleural effusion. Nathaniel Jonas MD 10/10/20 0959 Thank you for allowing us to participate in the care of your patient.
[2020-10-10] MEDS: Sodium Chloride 0.9% 10 ML Syringe FLUSH PRN ×6 (09:36→17:09)
[2020-10-10] MEDS: Levothyroxine 100 MCG Tab PO SCH (09:46)
[2020-10-10] MEDS: Magnesium Oxide 400 MG Tab PO SCH (09:46)
[2020-10-10] MEDS: Potassium Chloride 10% 20 MEQ/15 ML Soln 15 ML UD Cup PO SCH ×3 (09:46→18:59)
[2020-10-10] MEDS: Atenolol 50 MG Tab PO SCH (09:46)
[2020-10-10] MEDS: Omeprazole 20 MG Cap.CR PO SCH (09:46)
[2020-10-10] MEDS: Dexamethasone 4 MG Tab PO SCH (09:46)
[2020-10-10] MEDS: Allopurinol 100 MG Tab PO SCH (09:47)
[2020-10-10] MEDS: Phytonadione 100 MCG Tab PO SCH (09:47)
--- NOTE | 2020-10-10 11:06 | PCM.PN ---
- General Info Date of Service: 10/10/20 Admission Dx/Problem (Free Text): weakness, dehydration Subjective Update: Jair Leon is an 85-year-old male who is hospital day #4 for treatment of dehyd ration and weakness. Past medical history is most notable for esophageal cancer which he has recently completed chemo and radiation. Has been coming into the clinic for IV fluids due to dehydration. After coming into the clinic on 10/06/2020 for IV fluids he later presented to the ER that night for recurrence of his symptoms and was admitted. He is admitted for continued IV fluids as well as treatment of some mild electrolyte disturbances and to work with therapies. Yesterday his course was complicated by severely low BP and respiratory distress. He has received a large amount of IVF over the last 24 hours and remains on HF NC for O2 support. He remains on IV Zosyn for possible aspiration pneumonia. Ellyn-Laura on board. Vitals remain stable this morning. CXR demonstrating some increased opacities (more likely due to extra fluid). Discussed with daughter and son that I would like to try to albumin today to support his pressures and cut back on his fluids. Son plans to be to [facility] on the evening of 10/11/20. Discussed treatment of the acute illness before plann for prolonging measures (G-tube, etc). Did offer transfer to [facility] however at this point I don't feel they would have much more to offer than us here given his DNR/DNI status. Again, could consider pressor support. Family is considering 'comfort' cares however would like to wait until everyone is able to get here. Functional Status: Reports: Pain Controlled - Review of Systems Systems Review Comment:: Unable to assess - patient is sedated/sleeping - Patient Data Vitals - Most Recent: Last Vital Signs Temp 97.9 F 10/10/20 10:00 Pulse 93 10/10/20 10:00 Resp 40 H 10/10/20 10:00 BP 126/79 10/10/20 10:00 Pulse Ox 87 L 10/10/20 10:00 Weight - Most Recent: 147 lb I&O - Last 24 Hours: Intake & Output 10/09/20 10/10/20 10/10/20 22:59 06:59 14:59 Intake Total 2599 1150 Output Total 800 225 Balance 1790 025 Lab Results Last 24 Hours: Laboratory Results - last 24 hr 10/09/20 10/09/20 10/09/20 Range/Units 11:50 11:50 19:50 WBC 4.5 (4.0-10.0) x10^3/uL RBC 2.94 L (4.5-6.0) x10^6/uL Hgb 10.3 L D (14.0-18.0) g/dL Hct 30.1 L (40.0-52.0) % MCV 102.4 H (78.0-93.0) fL MCH 35.0 H (26.0-32.0) pg MCHC 34.2 (32.0-36.0) g/dL RDW Coeff of Denis 17.2 H (10.0-15.0) % Plt Count 46 L* (130-400) x10^3/uL Add Manual Diff Yes Neutrophils % (Manual) 47 L (50-80) % Band Neutrophils % 30 H (0-6) % Lymphocytes % (Manual) 17 L (25-50) % Reactive Lymphs % 1 H (0) % Metamyelocytes % 5 H (0) % Platelet Estimate Marked dec L Anisocytosis 2+ moderate H Microcytosis 2+ moderate H Sodium 141 (136-145) mmol/L Potassium 4.8 (3.5-5.1) mmol/L Chloride 110 H (98-107) mmol/L Carbon Dioxide 23 (21-32) mmol/L Anion Gap 12.8 (5-15) mmol/L BUN 24 H (7-18) mg/dL Creatinine 1.0 (0.70-1.30) mg/dL Est Cr Clr Drug Dosing 52.79 mL/min Estimated GFR (MDRD) > 60 Glucose 129 H (74-106) mg/dL Calcium 6.7 L* (8.5-10.1) mg/dL Corrected Calcium 8.86 (8.5-10.1) mg/dL Total Bilirubin 0.6 (0.2-1.0) mg/dL AST 28 (15-37) U/L ALT 18 (16-63) U/L Alkaline Phosphatase 50 (46-116) U/L Total Protein 3.9 L (6.4-8.2) g/dL Albumin 1.3 L (3.4-5.0) g/dL Globulin 2.6 Albumin/Globulin Ratio 0.50 SARS CoV-2 RNA Rapid MARTITA Negative (NEGATIVE) 10/10/20 10/10/20 Range/Units 07:50 07:50 WBC 6.7 (4.0-10.0) x10^3/uL RBC 3.37 L (4.5-6.0) x10^6/uL Hgb 11.8 L D (14.0-18.0) g/dL Hct 34.4 L (40.0-52.0) % MCV 102.1 H (78.0-93.0) fL MCH 35.0 H (26.0-32.0) pg MCHC 34.3 (32.0-36.0) g/dL RDW Coeff of Denis 17.9 H (10.0-15.0) % Plt Count 50 L (130-400) x10^3/uL Add Manual Diff Neutrophils % (Manual) (50-80) % Band Neutrophils % (0-6) % Lymphocytes % (Manual) (25-50) % Reactive Lymphs % (0) % Metamyelocytes % (0) % Platelet Estimate Anisocytosis Microcytosis Sodium 143 (136-145) mmol/L Potassium 4.1 (3.5-5.1) mmol/L Chloride 112 H (98-107) mmol/L Carbon Dioxide 25 (21-32) mmol/L Anion Gap 10.1 (5-15) mmol/L BUN 26 H (7-18) mg/dL Creatinine 0.8 (0.70-1.30) mg/dL Est Cr Clr Drug Dosing 65.98 mL/min Estimated GFR (MDRD) > 60 Glucose 132 H (74-106) mg/dL Calcium 7.4 L (8.5-10.1) mg/dL Corrected Calcium 9.40 (8.5-10.1) mg/dL Total Bilirubin 0.8 (0.2-1.0) mg/dL AST 59 H (15-37) U/L ALT 35 (16-63) U/L Alkaline Phosphatase 59 (46-116) U/L Total Protein 4.6 L (6.4-8.2) g/dL Albumin 1.5 L (3.4-5.0) g/dL Globulin 3.1 Albumin/Globulin Ratio 0.48 SARS CoV-2 RNA Rapid MARTITA (NEGATIVE) Franck Results Last 24 Hours: Microbiology 10/07/20 14:10 Aerobic Blood Culture - Preliminary Blood - Venous - Lab Draw NO GROWTH AFTER 2 DAYS Anaerobic Blood Culture - Preliminary NO GROWTH AFTER 2 DAYS 10/07/20 13:55 Aerobic Blood Culture - Preliminary Blood - Venous NO GROWTH AFTER 2 DAYS Anaerobic Blood Culture - Preliminary NO GROWTH AFTER 2 DAYS Med Orders - Current: Current Medications Acetaminophen (Acetaminophen 325 Mg Tab) 650 mg PO Q4H PRN PRN Reason: Pain (Mild 1-3)/fever Al Hydroxide/Mg Hydroxide (Gi Cocktail Oral Solution 30 Ml) 30 ml PO TIDAC [facility] Last Admin: 10/10/20 10:20 Dose: Not Given Documented by: Allopurinol (Allopurinol 100 Mg Tab) 100 mg PO DAILY [facility] Last Admin: 10/10/20 09:47 Dose: Not Given Documented by: Atenolol (Atenolol 50 Mg Tab) 50 mg PO DAILY [facility] Last Admin: 10/10/20 09:46 Dose: Not Given Documented by: Atorvastatin Calcium (Atorvastatin 10 Mg Tab) 20 mg PO BEDTIME [facility] Last Admin: 10/09/20 20:33 Dose: Not Given Documented by: Bisacodyl (Bisacodyl 5 Mg Tab) 5 mg PO DAILY PRN PRN Reason: Constipation Last Admin: 10/07/20 17:39 Dose: 5 mg Documented by: Bisacodyl (Bisacodyl 10 Mg Supp) 10 mg RECTAL DAILY PRN PRN Reason: Constipation Dexamethasone (Dexamethasone 4 Mg Tab) 4 mg PO DAILY [facility] Stop: 10/15/20 08:01 Last Admin: 10/10/20 09:46 Dose: Not Given Documented by: Flumazenil (Flumazenil 0.1 Mg/Ml 5 Ml Mdv) 0.2 mg IVPUSH ASDIRECTED PRN PRN Reason: Respiratory Depression Hydrocortisone Sodium Succinate (Hydrocortisone Sodium Succinate 250 Mg/2 Ml Sdv) 125 mg IV Q6H [facility] Last Admin: 10/10/20 10:22 Dose: 125 mg Documented by: Hydromorphone HCl (Hydromorphone 2 Mg Tab) 2 mg PO Q3H PRN PRN Reason: Pain Last Admin: 10/08/20 02:21 Dose: 2 mg Documented by: Hydromorphone HCl (Hydromorphone 0.5 Mg/0.5 Ml Syringe) 0.5 mg IVPUSH Q2H PRN PRN Reason: Pain Last Admin: 10/09/20 18:15 Dose: 0.5 mg Documented by: Promethazine HCl 6.25 mg/ (Sodium Chloride) 100.25 mls @ 400 mls/hr IV Q6H PRN PRN Reason: Nausea/Vomiting Potassium Chloride/Dextrose/Sod Cl (D5 Ns With 20 Meq Kcl) 1,000 mls @ 75 mls/hr IV ASDIRECTED [facility] Last Admin: 10/08/20 06:30 Dose: 75 mls/hr Documented by: Piperacillin Sod/Tazobactam (Sod 3.375 gm/ Sodium Chloride) 100 mls @ 25 mls/hr IV Q8H [facility] Last Admin: 10/10/20 09:39 Dose: 25 mls/hr Documented by: Sodium Chloride (Normal Saline) 1,000 mls @ 125 mls/hr IV ASDIRECTED [facility] Last Admin: 10/10/20 06:53 Dose: 175 mls/hr Documented by: Albumin Human 25 gm/ Sodium (Chloride) 500 mls @ 240 mls/hr IV ONETIME ONE Stop: 10/10/20 11:13 Last Admin: 10/10/20 10:22 Dose: 240 mls/hr Documented by: Levothyroxine Sodium (Levothyroxine 100 Mcg Tab) 100 mcg PO DAILY [facility] Last Admin: 10/10/20 09:46 Dose: Not Given Documented by: Lidocaine HCl (Lidocaine 2% Viscous Solution 15 Ml Cup) 30 ml PO QID PRN PRN Reason: PAIN Last Admin: 10/08/20 18:06 Dose: 30 ml Documented by: Lorazepam (Lorazepam 2 Mg/Ml Sdv) 1 mg IVPUSH Q2H PRN PRN Reason: Anxiety Last Admin: 10/10/20 09:35 Dose: 1 mg Documented by: Magnesium Oxide (Magnesium Oxide 400 Mg Tab) 400 mg PO BID [facility] Last Admin: 10/10/20 09:46 Dose: Not Given Documented by: Olanzapine (Olanzapine 5 Mg Tab) 10 mg PO BEDTIME [facility] Last Admin: 10/09/20 20:34 Dose: Not Given Documented by: Omeprazole (Omeprazole 20 Mg Cap.Cr) 20 mg PO DAILY [facility] Last Admin: 10/10/20 09:46 Dose: Not Given Documented by: Ondansetron HCl (Ondansetron 4 Mg/2 Ml Sdv) 4 mg IVPUSH Q8H PRN PRN Reason: Nausea Last Admin: 10/09/20 10:09 Dose: 4 mg Documented by: Ondansetron HCl (Ondansetron 4 Mg Tab.Dis) 4 mg PO Q4H PRN PRN Reason: Nausea/Vomiting Phytonadione (Phytonadione 100 Mcg Tab) 200 mcg PO DAILY [facility] Last Admin: 10/10/20 09:47 Dose: Not Given Documented by: Potassium Chloride (Potassium Chloride 10% 20 Meq/15 Ml Soln 15 Ml Ud Cup) 10 meq PO TID [facility] Last Admin: 10/10/20 09:46 Dose: Not Given Documented by: Senna/Docusate Sodium (Docusate Sodium/Sennosides 50-8.6 Mg Tab) 1 tab PO BID [facility] Last Admin: 10/10/20 09:46 Dose: Not Given Documented by: Sodium Chloride (Sodium Chloride 0.9% 10 Ml Syringe) 10 ml FLUSH ASDIRECTED PRN PRN Reason: FLUSH Last Admin: 10/10/20 09:36 Dose: 10 ml Documented by: Warfarin Sodium (Warfarin 2.5 Mg Tab) 2.5 mg PO BEDTIME [facility] Last Admin: 10/08/20 20:22 Dose: 2.5 mg Documented by: Discontinued Medications Al Hydroxide/Mg Hydroxide (Gi Cocktail Oral Solution 30 Ml) 30 ml PO TIDAC [facility] Last Admin: 10/07/20 16:33 Dose: 30 ml Documented by: Calcium Carbonate/Glycine (Calcium Carbonate 750 Mg Tab.Chew) 750 mg PO ONETIME STA Stop: 10/09/20 12:35 Last Admin: 10/09/20 16:39 Dose: Not Given Documented by: Dexamethasone (Dexamethasone 4 Mg Tab) 4 mg PO DAILY [facility] Stop: 10/12/20 10:00 Hydromorphone HCl (Hydromorphone 1 Mg/Ml Syringe) 1 mg IVPUSH ONETIME STA Stop: 10/09/20 11:53 Last Admin: 10/09/20 12:01 Dose: 1 mg Documented by: Hydromorphone HCl (Hydromorphone 1 Mg/Ml Syringe) 1 mg IVPUSH Q2H PRN PRN Reason: Pain Lactated Ringer's (Ringers, Lactated) 1,000 mls @ 999 mls/hr IV ONETIME ONE Stop: 10/07/20 14:47 Last Admin: 10/07/20 14:00 Dose: 999 mls/hr Documented by: Dextrose/Lactated Ringer's (Dextrose 5%-Lactated Ringers) 1,000 mls @ 75 mls/hr IV ASDIRECTED JAIDEN Sodium Chloride (Normal Saline) 500 mls @ 500 mls/hr IV ONETIME ONE Stop: 10/09/20 09:22 Last Admin: 10/09/20 09:30 Dose: 500 mls/hr Documented by: Piperacillin Sod/Tazobactam (Sod 4.5 gm/ Sodium Chloride) 100 mls @ 200 mls/hr IV Q8H JAIDEN Stop: 10/09/20 09:59 Last Admin: 10/09/20 09:34 Dose: 200 mls/hr Documented by: Sodium Chloride (Normal Saline) 1,000 mls @ 100 mls/hr IV ASDIRECTED [facility] Last Admin: 10/09/20 10:29 Dose: 100 mls/hr Documented by: Sodium Chloride (Normal Saline) 1,000 mls @ 999 mls/hr IV NOW STA Stop: 10/09/20 11:58 Last Admin: 10/09/20 11:21 Dose: 999 mls/hr Documented by: Sodium Chloride (Normal Saline) 1,000 mls @ 125 mls/hr IV ASDIRECTED [facility] Last Admin: 10/09/20 12:07 Dose: 125 mls/hr Documented by: Lidocaine HCl (Lidocaine 2% Viscous Solution 100 Ml Bottle) 30 ml PO QID PRN PRN Reason: Pain Lorazepam (Lorazepam 2 Mg/Ml Sdv) 0.5 mg IVPUSH Q2H PRN PRN Reason: restlessnes Last Admin: 10/09/20 11:28 Dose: 0.5 mg Documented by: Ondansetron HCl (Ondansetron 4 Mg/2 Ml Sdv) 4 mg IV Q6H PRN PRN Reason: Nausea/Vomiting Oxycodone HCl (Oxycodone 5 Mg Tab) 5 mg PO Q4H PRN PRN Reason: Pain Last Admin: 10/08/20 12:13 Dose: 5 mg Documented by: Oxycodone HCl (Oxycodone 5 Mg Tab) 5 mg PO Q4H PRN PRN Reason: Pain Pharmacy Consult (Pharmacy Consult Order) 1 each .XX ASDIRECTED JAIDEN Phytonadione (Phytonadione 100 Mcg Tab) 200 mcg PO DAILY [facility] Warfarin Sodium (Warfarin 5 Mg Tab) 10 mg PO ONETIME ONE Stop: 10/07/20 16:01 Last Admin: 10/07/20 16:33 Dose: 10 mg Documented by: Warfarin Sodium (Warfarin 2.5 Mg Tab) 7.5 mg PO ONETIME ONE Stop: 10/08/20 20:01 - Exam General: Obtunded Neck: Supple Lungs: Rales, Rhonchi Cardiovascular: Regular Rate, Regular Rhythm GI/Abdominal Exam: Soft Extremities: Pedal Edema (1+, hands also 1+) Skin: Warm, Dry - Patient Data Lab Results Last 24 hrs: Laboratory Results - last 24 hr 10/09/20 10/09/20 10/09/20 Range/Units 11:50 11:50 19:50 WBC 4.5 (4.0-10.0) x10^3/uL RBC 2.94 L (4.5-6.0) x10^6/uL Hgb 10.3 L D (14.0-18.0) g/dL Hct 30.1 L (40.0-52.0) % MCV 102.4 H (78.0-93.0) fL MCH 35.0 H (26.0-32.0) pg MCHC 34.2 (32.0-36.0) g/dL RDW Coeff of Denis 17.2 H (10.0-15.0) % Plt Count 46 L* (130-400) x10^3/uL Add Manual Diff Yes Neutrophils % (Manual) 47 L (50-80) % Band Neutrophils % 30 H (0-6) % Lymphocytes % (Manual) 17 L (25-50) % Reactive Lymphs % 1 H (0) % Metamyelocytes % 5 H (0) % Platelet Estimate Marked dec L Anisocytosis 2+ moderate H Microcytosis 2+ moderate H Sodium 141 (136-145) mmol/L Potassium 4.8 (3.5-5.1) mmol/L Chloride 110 H (98-107) mmol/L Carbon Dioxide 23 (21-32) mmol/L Anion Gap 12.8 (5-15) mmol/L BUN 24 H (7-18) mg/dL Creatinine 1.0 (0.70-1.30) mg/dL Est Cr Clr Drug Dosing 52.79 mL/min Estimated GFR (MDRD) > 60 Glucose 129 H (74-106) mg/dL Calcium 6.7 L* (8.5-10.1) mg/dL Corrected Calcium 8.86 (8.5-10.1) mg/dL Total Bilirubin 0.6 (0.2-1.0) mg/dL AST 28 (15-37) U/L ALT 18 (16-63) U/L Alkaline Phosphatase 50 (46-116) U/L Total Protein 3.9 L (6.4-8.2) g/dL Albumin 1.3 L (3.4-5.0) g/dL Globulin 2.6 Albumin/Globulin Ratio 0.50 SARS CoV-2 RNA Rapid MARTITA Negative (NEGATIVE) 10/10/20 10/10/20 Range/Units 07:50 07:50 WBC 6.7 (4.0-10.0) x10^3/uL RBC 3.37 L (4.5-6.0) x10^6/uL Hgb 11.8 L D (14.0-18.0) g/dL Hct 34.4 L (40.0-52.0) % MCV 102.1 H (78.0-93.0) fL MCH 35.0 H (26.0-32.0) pg MCHC 34.3 (32.0-36.0) g/dL RDW Coeff of Denis 17.9 H (10.0-15.0) % Plt Count 50 L (130-400) x10^3/uL Add Manual Diff Neutrophils % (Manual) (50-80) % Band Neutrophils % (0-6) % Lymphocytes % (Manual) (25-50) % Reactive Lymphs % (0) % Metamyelocytes % (0) % Platelet Estimate Anisocytosis Microcytosis Sodium 143 (136-145) mmol/L Potassium 4.1 (3.5-5.1) mmol/L Chloride 112 H (98-107) mmol/L Carbon Dioxide 25 (21-32) mmol/L Anion Gap 10.1 (5-15) mmol/L BUN 26 H (7-18) mg/dL Creatinine 0.8 (0.70-1.30) mg/dL Est Cr Clr Drug Dosing 65.98 mL/min Estimated GFR (MDRD) > 60 Glucose 132 H (74-106) mg/dL Calcium 7.4 L (8.5-10.1) mg/dL Corrected Calcium 9.40 (8.5-10.1) mg/dL Total Bilirubin 0.8 (0.2-1.0) mg/dL AST 59 H (15-37) U/L ALT 35 (16-63) U/L Alkaline Phosphatase 59 (46-116) U/L Total Protein 4.6 L (6.4-8.2) g/dL Albumin 1.5 L (3.4-5.0) g/dL Globulin 3.1 Albumin/Globulin Ratio 0.48 SARS CoV-2 RNA Rapid MARTITA (NEGATIVE) Result Diagrams: 10/10/20 07:50 10/10/20 07:50 Franck Results Last 24 hrs: Microbiology 10/07/20 14:10 Aerobic Blood Culture - Preliminary Blood - Venous - Lab Draw NO GROWTH AFTER 2 DAYS Anaerobic Blood Culture - Preliminary NO GROWTH AFTER 2 DAYS 10/07/20 13:55 Aerobic Blood Culture - Preliminary Blood - Venous NO GROWTH AFTER 2 DAYS Anaerobic Blood Culture - Preliminary NO GROWTH AFTER 2 DAYS Sepsis Event Note - Evaluation Sepsis Screening Result: Severe Sepsis Risk - Focused Exam Vital Signs: Vital Signs Temp Temp Pulse Resp BP Pulse Ox Pulse Ox 10/10/20 10:00 97.9 F 93 40 H 126/79 87 L 87 L 10/10/20 08:00 88 L 10/10/20 06:54 97 F 92 28 H 129/66 90 L 10/10/20 05:42 98 F 91 28 H 93/61 93 L 10/10/20 05:41 93 L 10/10/20 04:08 97.6 F 86 28 H 136/81 94 L 10/10/20 02:18 94 L 10/10/20 02:15 94 L 10/10/20 02:00 97.2 F 89 24 H 119/69 94 L 10/10/20 01:04 97 F 88 24 H 111/69 90 L 10/10/20 00:43 97.3 F 88 26 H 89/74 L 93 L 10/09/20 23:42 96 F L 78 24 H 106/69 94 L - Problem List & Annotations (1) Dehydration SNOMED Code(s): 55544993 Code(s): E86.0 - DEHYDRATION Status: Acute Current Visit: Yes (2) Hypovolemic shock SNOMED Code(s): 71120597 Code(s): R57.1 - HYPOVOLEMIC SHOCK Status: Resolved Current Visit: Yes (3) Hypoxia SNOMED Code(s): 940056414 Code(s): R09.02 - HYPOXEMIA Status: Acute Current Visit: Yes (4) Pneumonia, aspiration SNOMED Code(s): 801641052 Code(s): J69.0 - PNEUMONITIS DUE TO INHALATION OF FOOD AND VOMIT Status: Acute Current Visit: Yes (5) Esophageal cancer SNOMED Code(s): 793708573 Code(s): C15.9 - MALIGNANT NEOPLASM OF ESOPHAGUS, UNSPECIFIED Status: Acute Current Visit: Yes Qualifiers: Malignant neoplasm of esophagus location: unspecified location Qualified Code(s): C15.9 - Malignant neoplasm of esophagus, unspecified (6) Generalized weakness SNOMED Code(s): 29667209 Code(s): R53.1 - WEAKNESS Status: Acute Current Visit: Yes (7) ARDS (adult respiratory distress syndrome) SNOMED Code(s): 32985860, 46926474 Code(s): J80 - ACUTE RESPIRATORY DISTRESS SYNDROME Status: Acute Current Visit: Yes - Problem List Review Problem List Initiated/Reviewed/Updated: Yes - My Orders Last 24 Hours: My Active Orders 10/09/20 10:30 Hydrocortisone Sod Succinate [Solu-CORTEF] 125 mg IV Q6H 10/09/20 10:34 Swallow Screen [Nursing Bedside Swallow Screen] [] 10/09/20 11:22 flumazeniL [Romazicon] 0.2 mg IVPUSH ASDIRECTED PRN 10/09/20 13:21 Urinary Catheter Assessment [] 10/09/20 14:32 HYDROmorphone [Dilaudid] 0.5 mg IVPUSH Q2H PRN 10/09/20 19:34 LORazepam [Ativan] 1 mg IVPUSH Q2H PRN 10/10/20 Breakfast NPO Now [Nothing per Oral Now Diet] [DIET] 10/10/20 09:09 Albumin 25% [Flexbumin 25%] 25 gm Sodium Chloride 0.9% [Normal Saline] 400 ml IV ONETIME - Assessment Assessment:: Jair Leon is an 85yoM who is hospital day #4 for treatment of dehydration and weakness Hypovolemic shock - improved Severe Dehydration - improved -Patients with significantly low BP yesterday am. S/P liters of fluid at this time -Patient now with indications of volume overload Plan: -Nursing to titrate IVF down to maintain SBP >110 -Solu-Cortef 125 every 6 hours -5% Albumin 25g given this am, consider repeat dose this afternoon -Holding atenolol -BMP in the am ARDS Suspected aspiration pneumonia Fluid Overload -Patient with acute respiratory decompensation yesterday; esophageal cancer and trouble swallowing -Continues on HFNC -CXR demonstrating increased consolidation today, suspect degree of fluid overload. Unfortunately we are limited on diuresis given touch and go on BP -Patient with increase wet cough this morning as well Plan: -Supplemental O2 as needed, respiratory therapy to follow. Continue high flow nasal cannula at this time however may try to wean is able -Zosyn 4.5 mg every 8 hours -Nothing by mouth except for meds -Actively working on cutting IVF with addition of albumin this morning -Glycopyrrolate for secretions/cough -Consideration for very low dose Lasix for diuresis if BP stable enough - however cautious given patient's critical condition -ST scheduled video swallow 10/11/20 - will hold off at thistime Weakness Malnutrition -Generalized weakness due to chronic disease as well as poor nutrition Plan: -Holding off on therapies/diet at this time. If patient turns the corner consideration given for restarting therapies and diet challenge Hypokalemia and hypomagnesemia - improved, on oral supplementation Chronic: Constipation - likely 2/2 opioids, on a bowel regimen Cancer related pain - continued Dilaudid Nausea - Zofran when necessary Atrial fib - INR up to 3.8 today. We did go ahead and restart his vitamin K at 200 g daily. Holding warfarin at this time. Well recheck INR tomorrow Esophageal cancer, status post treatments Diet: Nothing by mouth at this time, nursing bedside swallow evaluation IV fluids: NS@100mL/hr - nursing to titrate down to maintain SBP >110 CODE: DNR/DNI Disposition: Guarded. Patient stable overnight. Addition of albumin this morning for BP support in the setting of hypotension and ARDS. IF BPs stable enough will consider low dose lasix to help with fluid overload. Continuing antibiotics as well. Son will be in evening of 10/11/20. Discussions of possible comfort cares have been had however family would like to wait until all are present.
[2020-10-10] MEDS ORDERED: Sodium Chloride 0.9% 1,000 ML IV SCH (11:14)
[2020-10-10] MEDS ORDERED: Glycopyrrolate 0.2 MG/ML 2 ML SDV IVPUSH PRN ×3 (11:25→14:38)
[2020-10-10] MEDS ORDERED: Glycopyrrolate 0.2 MG/ML 2 ML SDV IVPUSH STA (11:32)
[2020-10-10] MEDS ORDERED: Furosemide 20 MG/2 ML VIAL IV ONE ×2 (11:47→20:28)
[2020-10-10] MEDS ORDERED: Furosemide 20 MG/2 ML VIAL IV STA (13:40)
[2020-10-10] MEDS: HYDROmorphone 0.5 MG/0.5 ML Syringe IVPUSH PRN ×3 (14:18→22:59)
[2020-10-10] MEDS: Glycopyrrolate 0.2 MG/ML 2 ML SDV IVPUSH PRN ×2 (14:56→17:09)
--- NOTE | 2020-10-10 16:18 | PCM.SN.2 ---
- Free Text/Narrative Note: Provider updated on patient's status this afternoon. We have given albumin as well as cut his fluids. He has received Lasix. Clinical status is not improving. Family has spoked with RN this afternoon in regards to outlook and concerns from this morning were reiterated. At this time family is on board with pursuing comfort care measures. Dilaudid is available for pain. Glycopyrolate frequency increased for secretions. IVF cut down. Will continue to monitor status and support patient and family.
--- NOTE | 2020-10-10 20:36 | PCM.SN.2 ---
- Free Text/Narrative Note: Handoff given to oncoming provider and care-plan discussed. In reviewing patient's case at this time we are thinking this may be more of a fluid overload picture rather than infectious as his vitals and WBCs have remained normal throughout the last 2 days. Given the patient's main trouble at this time is the respiratory distress we will try to offload more fluid with another dose of lasix. This will be done for comfort measures given his air hunger and pulmonary congestion. He is on comfort cares but there is still a question about his ability to be turned around if we can balance his intravascular fluid content (protein, etc). Contacted the floor nurse and SBP 90 at this time. Will treat with the Albumin 5% first for volume expansion and then once SBP >130 will give Lasix 20mg IV.
[2020-10-11] MEDS: LORazepam 2 MG/ML SDV IVPUSH PRN ×3 (02:29→06:21)
[2020-10-11] MEDS: Glycopyrrolate 0.2 MG/ML 2 ML SDV IVPUSH PRN ×5 (04:04→21:41)
[2020-10-11] MEDS: Sodium Chloride 0.9% 10 ML Syringe FLUSH PRN ×10 (04:06→22:37)
[2020-10-11 07:41] LABS: CHLORIDE,CL 112 mmol/L (98-107); SODIUM,NA 147 mmol/L (136-145)
[2020-10-11 07:44] LABS: ANION GAP 9.1 mmol/L (5-15)
[2020-10-11] MEDS: Levothyroxine 100 MCG Tab PO SCH (08:09)
[2020-10-11] MEDS: Phytonadione 100 MCG Tab PO SCH (08:09)
[2020-10-11] MEDS: Potassium Chloride 10% 20 MEQ/15 ML Soln 15 ML UD Cup PO SCH (08:09)
[2020-10-11] MEDS ORDERED: Furosemide 40 MG/4 ML VIAL IV ONE (08:33)
[2020-10-11] MEDS ORDERED: Potassium Chloride Riders 20 MEQ in Premix Bag 1 BAG IV ONE (08:34)
[2020-10-11] MEDS: Ondansetron 4 MG/2 ML SDV IVPUSH PRN (09:00)
[2020-10-11] MEDS: HYDROmorphone 0.5 MG/0.5 ML Syringe IVPUSH PRN ×4 (09:06→22:08)
[2020-10-11] MEDS ORDERED: Albumin 25% 25 GM in Sodium Chloride 0.9% 400 ML IV ONE (16:43)
[2020-10-11] MEDS: Pantoprazole 40 MG Vial IVPUSH SCH (17:23)
--- NOTE | 2020-10-11 17:38 | PN ---
Progress Note for STARLA FREED Date: 10/11/2020 Room #: VM.218 SUBJECTIVE: This is hospital day #3 acute care. He was initially admitted on the for observation for weakness and dehydration. Unfortunately, he became hypotensive and went into respiratory failure early on the morning of the . He was initiated on high-flow oxygen. He refused the BiPAP mask. He is still refusing it today. He is alert enough this morning to state he would like to drink some water. He would like to lie back down in bed. He denies pain. He has been getting some IV Dilaudid for respiratory distress. He has been unable to take any of his oral pills. The patient's daughter did arrive at the bedside and we also discussed his overall care. He has been afebrile. He did get IV Zosyn due to concern for aspiration, but that was discontinued yesterday when he was placed on comfort cares. His high-flow was able to be weaned down to 70% and last evening his Lasix was repeated again with some IV albumin, and he has had really good urine output from that and appears to be breathing more comfortably after diuresis. Chest x-ray was showing pulmonary edema. 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 He completed radiation Oncology on 09/20 and has been on dexamethasone due to painful esophagitis, and also paclitaxel and carboplatin was completed on 09/21. OBJECTIVE: Vital Signs: Today, his temperature is 98.2, pulse 106, blood pressure 119/80, respiratory rate 32, O2 of 93% on 70% high-flow. General: He is in no acute distress. He is resting comfortably. Heart: Irregularly irregular. Lungs: Sounds are decreased with some crackles throughout. Abdomen: Nondistended. Positive bowel sounds. Soft, nontender. Extremities: Warm and dry. He is not having any mottling. He is having no edema. Mental Status: The patient is somnolent, but able to answer for questions, yes or no. We did not go through orientation questions. LABORATORY DATA: Lab work shows white count 4, hemoglobin 10.6, platelets 67. INR 2.5. Sodium 147, potassium 3.1, chloride 112, bicarb 29, BUN 23, creatinine 0.8, glucose 93, calcium 7.6, magnesium 1.8, bilirubin 0.8, AST 38, ALT 26, alkaline phosphatase 49. Troponin 19. CRP 32. ProBNP 3410. Albumin 1.9, had been as well as 1.3. COVID test repeated was negative. ASSESSMENT: 1. Acute hypoxic respiratory failure due to pulmonary edema. We will give the Lasix 40 mg IV x1 today given his blood pressure is up. We will see if this improves his respiratory status given that the goals of care are comfort. 2. Hypokalemia. I will replace IV given ongoing diuresis. 3. Hypovolemic shock. The patient has gotten significant amounts of fluid. Had likely been doing some 3rd spacing. It appears that the 5% albumin has worked. If he drops his pressures again, I will likely re-dose that. He is also on Solu-Cortef 125 q.6 for blood pressure support. 4. Recent esophageal cancer, recently completed treatments. 5. Suspected aspiration pneumonia. Discussed again with his daughter that he is off antibiotics. She was hopeful he might improve. Did discuss with her that he might improve in the short term from a respiratory status, but certainly we are not supporting him with nutrition and given his goals of care of comfort and not wanting feeding tube. 6. Severe malnutrition due to esophageal cancer. 7. Atrial fibrillation with some mild tachycardia related to not being able to take his beta-blockers. If his blood pressure stays up, we can try some IV metoprolol, but only if his heart rates get above 120. 8. Constipation related to opioids. 9. Esophagitis. We can transition his PPI to IV Protonix for comfort. PLAN: We will decrease the IV Ativan. It does not seem to be helping as much and focus on using Dilaudid more for the air hunger and symptom management. We will continue off antibiotics and focus mainly on comfort, but I did replace potassium given that ongoing diuresis is needed for comfort. We will give him IV Lasix today and hopefully his son will arrive later this evening. Anticipate that the patient's condition is likely to worsen and he could pass on in the next few days. Consider transition over to skilled end-of-life cares. However, today I am actively managing and adjusting medications. MKA: 10/11/2020 16:59:13 MODL: 10/11/2020 17:33:28 /[id number]
[2020-10-11] MEDS ORDERED: Furosemide 20 MG/2 ML VIAL IV ONE (22:05)
[2020-10-12] MEDS: Glycopyrrolate 0.2 MG/ML 2 ML SDV IVPUSH PRN ×2 (00:23→03:01)
[2020-10-12] MEDS: Sodium Chloride 0.9% 10 ML Syringe FLUSH PRN ×4 (00:27→05:15)
[2020-10-12] MEDS: LORazepam 2 MG/ML SDV IVPUSH PRN ×2 (03:05→08:03)
[2020-10-12] MEDS: Pantoprazole 40 MG Vial IVPUSH SCH (04:58)
[2020-10-12] MEDS: HYDROmorphone 0.5 MG/0.5 ML Syringe IVPUSH PRN ×3 (05:06→09:29)
[2020-10-12 05:55] VITALS: BP 144/87; PULSE 112
[2020-10-12] MEDS: Phytonadione 100 MCG Tab PO SCH (11:20)
--- NOTE | 2020-10-13 07:30 | DISCH ---
DATE OF HOSPITAL ADMISSION OBSERVATION: 10/07/2020. DATE OF ACUTE CARE: 10/09/2020. DATE OF : 10/12/2020 at 11:10 a.m. PRIMARY CAUSE OF : 1. Acute hypoxic respiratory failure due to pulmonary edema and likely aspiration. 2. Esophageal cancer, stage T3, N1, M0 adenocarcinoma of distal esophagus, completed radiation and chemo on 09/21/2020. 3. Severe malnutrition due to esophageal cancer. 4. Hypokalemia, replaced. 5. Hypovolemic shock. 6. Suspected aspiration pneumonia. 7. Atrial fibrillation with subtherapeutic INR and history of transient ischemic attack. 8. Esophagitis. 9. Constipation related to opioids. 10.Possible stroke on this admission versus medication reaction with patient being slightly slower to respond on 10/08 but with no slurred speech or strength deficits. He also denied any trouble swallowing. REASON FOR ADMISSION: On the date of admission, this 85-year-old male who had previously been living at home independently, but had some trouble swallowing over the last several months and had been evaluated and was found to have the esophageal cancer. The patient had been declining a feeding tube. He was supported with IV fluids after treatments. However, he was getting weaker and not feeling well. Therefore, came into the ER and was evaluated. He was not found to have any infections. He was not having any cough. No fever, no chills. He received IV fluids, and in fact, on the evening of the was doing quite well. He did receive some Dilaudid for pain through the night, and throughout the day on Sunday, he seemed to be a little bit slower to respond, however, there were no focal deficits. Because of needing electrolytes replaced, he was kept on observation with plan to likely transition over to swing bed. 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 His chest x-ray confirmed that. He was eating, so it was felt he potentially aspirated. He was started on IV Zosyn. He was given even more fluids for hypotension. He was placed on high-flow oxygen and was even up to 100%. He was not interested in using the BiPAP and clearly when I spoke with him on Sunday had refused the mask again. The patient then became stable enough with his blood pressure after receiving hydrocortisone and albumin that he could be diuresed with Lasix and in fact did have some good output. Discussions were had with the on-call doctor and his daughter about pursuing comfort measures and the family was in agreement for this. His son was traveling from [place] and was able to get here last evening. The patient was also last evening getting more Lasix to help with the secretions and glycopyrrolate was being utilized. Suction was available, but was not needed. The patient had no fevers. His antibiotics had been discontinued. He was receiving Dilaudid for respiratory distress and was quite comfortable. It seemed to work much better than benzodiazepine. With his daughter and 2 sons at the bedside this morning, we did discuss withdrawing the high-flow oxygen and the family felt that they would like to pursue that, and in fact, they did do that with the nurse present to give the patient some Dilaudid for comfort prior, and he did pass away just over an hour after withdrawing the oxygen. The patient otherwise was in no distress. Initially, it was felt that he would likely recover with good nutrition on his admit but unfortunately due to multiple events, he did decompensate. The daughter asked if he had a stroke as he was a little bit slower to respond on Sunday. Did discuss with her this potentially could have been the case that he had that due to his INR being subtherapeutic and then he was given high dose of Coumadin and his INR became supratherapeutic, but he had no bleeding issues. In the end, the patient's wishes were not to have heroic measures and his wishes were honored, and he comfortably with family at bedside. THIEN: 10/12/2020 17:18:53 MODL: 10/12/2020 17:57:15 /[id number] KELVIN
== END 2020-10-12 11:10 | disposition expired | DRG 177 ==
LOC: VM.ED 12:36 → VM.MS 15:13 → OBSVTOIN 10-09 09:10
PROVIDERS: ADMIT Nurse Practitioner Family; ATTEND Internal Medicine
PROC: 5A0945A Assistance with Respiratory Ventilation, 24-96 Consecutive Hours, High Flow/Velocity Cannula (ICD-10-PCS; principal; 2020-10-09)
DX: J69.0 Pneumonitis due to inhalation of food and vomit (principal); E43 Unspecified severe protein-calorie malnutrition; J80 Acute respiratory distress syndrome; Z92.21 Personal history of antineoplastic chemotherapy; Z92.3 Personal history of irradiation; I63.9 Cerebral infarction, unspecified; I38 Endocarditis, valve unspecified; J81.1 Chronic pulmonary edema; C15.5 Malignant neoplasm of lower third of esophagus; E87.6 Hypokalemia; R57.1 Hypovolemic shock; Z51.5 Encounter for palliative care; K59.00 Constipation, unspecified; I48.91 Unspecified atrial fibrillation; R79.1 Abnormal coagulation profile; K20.90 Esophagitis, unspecified without bleeding; R86.0 Abnormal level of enzymes in specimens from male genital organs; K59.03 Drug induced constipation; T40.2X5A Adverse effect of other opioids, initial encounter; I95.9 Hypotension, unspecified; E87.70 Fluid overload, unspecified; R09.02 Hypoxemia; D69.6 Thrombocytopenia, unspecified; Z20.822 Contact with and (suspected) exposure to COVID-19; G89.3 Neoplasm related pain (acute) (chronic); R53.1 Weakness; R11.0 Nausea; Z66 Do not resuscitate; M10.9 Gout, unspecified; E78.5 Hyperlipidemia, unspecified; E03.9 Hypothyroidism, unspecified; Z96.653 Presence of artificial knee joint, bilateral; E86.0 Dehydration; E83.42 Hypomagnesemia; H91.90 Unspecified hearing loss, unspecified ear; M19.90 Unspecified osteoarthritis, unspecified site; Z98.49 Cataract extraction status, unspecified eye; Z86.73 Personal history of transient ischemic attack (TIA), and cerebral infarction without residual deficits; Z79.899 Other long term (current) drug therapy; Z79.890 Hormone replacement therapy; Z79.01 Long term (current) use of anticoagulants; Z90.89 Acquired absence of other organs; Z98.52 Vasectomy status; Z68.21 Body mass index [BMI] 21.0-21.9, adult; Z79.52 Long term (current) use of systemic steroids; Z85.828 Personal history of other malignant neoplasm of skin
CPT/HCPCS: 36415; 51702; 71045; 80048; 80053; 81001; 83605; 83735; 83880; 84443; 84484; 85025; 85027; 85610; 85730; 86140; 87040; 92610-GN; 93005; 94760; 96365; 96366; 96375; 97162-GP; 97165-GO; 99285-25; A9270-GY; C9113; G0378; J1170; J1720; J1940; J2060; J2405; J2543; J3480; J3490; J7030; J7040; J7120; J8540; P9047; U0002